=== PATIENT | female | born 1965 | race Caucasian/White ===

== ENCOUNTER 2017-03-25 13:33 | Outpatient (CLI) | payer BC ==
[~2017-03-25] VITALS: Ht 162.6 cm; Wt 108.2 kg
[~2017-03-25 13:33] MED LIST: MV,C200T3 PO; NAPR220C11 PO
[2017-03-25] MEDS ORDERED: MEDR2.5T6 PO (13:44)
[2017-03-25] MEDS ORDERED: ESTR1TAB24 PO (13:44)
[2017-03-25] MEDS ORDERED: MELA3TAB54 PO (13:44)
[2017-03-25] MEDS ORDERED: IBUP-1779 PO (13:44)
[2017-03-25 13:48] VITALS: BP 116/74
[2017-03-25 14:19] LABS: BASOPHILS % (AUTO) 0 % (0-10); EOSINOPHILS # (AUTO) 0.1 10^3/uL (0.0-0.3); EOSINOPHILS % (AUTO) 2 % (0-10); LYMPHOCYTES # (AUTO) 1.8 X 10^3 (1.0-4.0); LYMPHOCYTES % (AUTO) 26 % (12-44); MEAN CORPUSCULAR HEMOGLOBIN 27 PG (25-34); MEAN CORPUSCULAR HGB CONC 33 G/DL (32-36); MEAN CORPUSCULAR VOLUME 83 FL (80-99); MEAN PLATELET VOLUME 10.9 FL (7.4-10.4); MONOCYTES # (AUTO) 0.6 X 10^3 (0.0-1.0); MONOCYTES % (AUTO) 8 % (0-12); NEUTROPHILS # (AUTO) 4.4 X 10^3 (1.8-7.8); NEUTROPHILS % (AUTO) 64 % (42-75); PLATELET COUNT 212 10^3/uL (130-400); RED BLOOD COUNT 4.76 10^6/uL (4.35-5.85); RED CELL DISTRIBUTION WIDTH 14.9 % (10.0-14.5); WHITE BLOOD COUNT 6.9 10^3/uL (4.3-11.0)
== END 2017-03-25 14:40 | disposition home or self-care (01) ==
LOC: PREOP 13:33
PROVIDERS: ATTEND Obstetrics & Gynecology
DX: Z01.812 Encounter for preprocedural laboratory examination (principal); Z11.2 Encounter for screening for other bacterial diseases; N81.2 Incomplete uterovaginal prolapse; N39.3 Stress incontinence (female) (male); D64.9 Anemia, unspecified
CPT/HCPCS: 36415; 85025; 86850; 86900; 86901; 87081

== ENCOUNTER 2017-04-01 11:00 | Day surgery (SDC) | payer BC ==
[~2017-04-01] VITALS: Ht 162.6 cm; Wt 108.2 kg
[~2017-04-01 11:00] MED LIST changes: +ESTR1TAB24 PO; +IBUP-1779 PO; +MEDR2.5T6 PO; +MELA3TAB54 PO
[2017-04-01] MEDS ORDERED: ceFAZolin 1 GM/NS 50 ML IVPB IV ONE ×2 (11:15)
[2017-04-01 11:43] VITALS: BP 144/84
[2017-04-01] MEDS ORDERED: FAMOTIDINE 20MG/2ML IV (PEPCID) IV ONE (12:15)
[2017-04-01] MEDS: LACTATED RINGERS 1,000 ML IV PRN ×2 (12:25→15:00)
[2017-04-01] MEDS ORDERED: ESTRADIOL VAGINAL CREAM 42.5 GM (ESTRACE) VG ONE (13:16)
[2017-04-01] MEDS ORDERED: BUP/EPI 0.25% 1:200,000 (MARCAINE) 10 ML VIAL IJ ONE (13:16)
[2017-04-01] MEDS ORDERED: proPOfol 200 MG/20 ML (DIPRIVAN) VIAL IV ONE (13:30)
[2017-04-01] MEDS ORDERED: DEXAMETHASONE PF 10 MG/ML (DECADRON) VIAL ONE (13:30)
[2017-04-01] MEDS ORDERED: LIDOCAINE PF 2% 5 ML (XYLOCAINE) VIAL ONE (13:30)
[2017-04-01] MEDS ORDERED: ROCURONIUM 50 MG/5 ML (ZEMURON) VIAL IV ONE (13:30)
[2017-04-01] MEDS ORDERED: ONDANSETRON 4 MG/2 ML (SDV) Z0FRAN ONE (13:30)
[2017-04-01] MEDS ORDERED: fentaNYL INJECTION 100 MCG/2 ML AMP ONE ×2 (13:31→15:54)
[2017-04-01] MEDS ORDERED: MIDAZOLAM 2 MG/2 ML (VERSED) VIAL ONE (13:31)
--- NOTE | 2017-04-01 13:58 | Progress Note-Pre Operative ---
Pre-Operative Progress Note H&P Reviewed The H&P was reviewed, patient examined and no changes noted. Date Seen by Provider: Apr 01, 2017 Time Seen by Provider: 13:57 Date H&P Reviewed: Apr 01, 2017 Time H&P Reviewed: 13:58 Pre-Operative Diagnosis: uterovaginal prolapse and stress urinary incontinence ZOYA HARDIN MD Apr 01, 2017 1:58 pm
[2017-04-01] MEDS ORDERED: D5 LR IV SOLUTION 1,000 ML IV SCH (13:59)
--- NOTE | 2017-04-01 13:59 | Progress Note-Post Operative ---
Post-Operative Progess Note Surgeon (s)/Scientific Database Curator (s) Surgeon ZOYA HARDIN MD Scientific Database Curator: Cinthya Wynne RN Pre-Operative Diagnosis uterovaginal prolapse and stress urinary incontinence Post-Operative Diagnosis same Procedure & Operative Findings Date of Procedure 04/01/17 Procedure Performed/Findings total laparoscopic hysterectomy with bilateral salpingo-oophorectomy anterior colporrhaphy posterior colporrhaphy with enterocele repair Will performed a pubovaginal sling and cystoscopy Anesthesia Type Gen. Estimated Blood Loss Estimated blood loss (mL): 200 cc Specimens/Packing Specimens Removed uterus tubes and ovaries Packing: Kerlix in the vagina ZOYA HARDIN MD Apr 01, 2017 13:59
[2017-04-01] MEDS ORDERED: BENZOCAINE/MENTHOL (DERMOPLAST) 56 ML CAN TP PRN (14:00)
[2017-04-01] MEDS ORDERED: PROMETHAZINE INJ 25 MG/ML (PHENERGAN) AMP IM PRN (14:00)
[2017-04-01] MEDS ORDERED: WATER (STERILE) FOR INJ 10 ML BTL INJ ONE (14:00)
[2017-04-01] MEDS ORDERED: ESTROGENS CONJ IV 25 MG/5 ML (PREMARIN) VIAL IVP ONE (14:00)
[2017-04-01] MEDS ORDERED: ONDANSETRON 4 MG/2 ML (SDV) Z0FRAN IVP PRN ×2 (14:00→16:30)
[2017-04-01] MEDS ORDERED: MEPERIDINE (DEMEROL) INJ 100 MG/ML IM PRN (14:00)
[2017-04-01] MEDS ORDERED: oxyCODONE/APAP 10/325MG (PERCOCET 10) TABLET PO PRN (14:00)
[2017-04-01] MEDS ORDERED: SEVOFLURANE (ULTANE) 15 ML INHAL SOLN ONE ×9 (14:24→16:14)
[2017-04-01] MEDS ORDERED: LACTATED RINGERS 1,000 ML IV ONE ×2 (14:24→15:55)
--- NOTE | 2017-04-01 15:47 | Progress Note-Post Operative ---
Post-Operative Progess Note Surgeon (s)/Farm Equipment Maintenance Supervisor (s) Surgeon HUNG GAONA MD Farm Equipment Maintenance Supervisor: Cinthya Wynne RN Pre-Operative Diagnosis uterovaginal prolapse and stress urinary incontinence, OAB, ISD Post-Operative Diagnosis same Procedure & Operative Findings Date of Procedure 04/01/17 Procedure Performed/Findings PVS AND CYSTOSCOPY FINDINGS PER ABOVE Anesthesia Type GENERAL Estimated Blood Loss Estimated blood loss (mL): NEGLIGIBLE Specimens/Packing Specimens Removed N/A Packing: Kerlix in the vagina HUNG GAONA MD Apr 01, 2017 3:47 pm
[2017-04-01] MEDS ORDERED: morphine INJ 10 MG/ML 1ML (SYR OR VIAL) ONE (15:48)
[2017-04-01] MEDS ORDERED: GLYCOPYRROLATE 0.2 MG/ML (ROBINUL) 2 ML VIAL ONE (15:55)
[2017-04-01] MEDS ORDERED: NEOSTIGMINE (BLOXIVERZ ) 1 MG/1ML 10 ML VIAL ONE (15:55)
[2017-04-01] MEDS ORDERED: KETOROLAC 30 MG/ML VIAL IVP ONE (16:30)
[2017-04-01] MEDS ORDERED: morphine INJ 10 MG/ML 1ML (SYR OR VIAL) IVP PRN (16:30)
[2017-04-01] MEDS ORDERED: HYDROmorphone (DILAUDID) 2 MG/ML VIAL IVP PRN (16:30)
[2017-04-01 17:20] VITALS: BP 119/68
[2017-04-01 17:35] VITALS: BP 122/68
[2017-04-01 17:50] VITALS: BP 115/62
[2017-04-01 18:05] VITALS: BP 120/54
[2017-04-01 20:00] VITALS: BP 118/74
[2017-04-01] MEDS: KETOROLAC 30 MG/ML VIAL IVP SCH (22:04)
[2017-04-02 00:34] VITALS: BP 128/73
--- NOTE | 2017-04-02 03:04 | OPERATIVE REPORT ---
DATE OF SERVICE: 04/01/2017 PREOPERATIVE DIAGNOSES: Uterovaginal prolapse and stress urinary incontinence. POSTOPERATIVE DIAGNOSES: Uterovaginal prolapse and stress urinary incontinence. OPERATIVE PROCEDURE: Total laparoscopic hysterectomy with bilateral salpingo-oophorectomy as well as anterior and posterior colporrhaphy with enterocele repair and then Dr. Berry will also performed a pubovaginal sling and cystoscopy. OPERATIVE DESCRIPTION: With the patient in the supine position under satisfactory general anesthesia, she was repositioned to dorsal lithotomy position in the [facility] and prepped and draped in the usual fashion for abdominal and vaginal surgery. A weighted speculum was placed in the posterior fornix of the vagina. The cervix was exposed and grasped anteriorly with single-tooth tenaculum. Uterus was sounded to 8.5 cm with the uterine sound. The cervix was then serially dilated with mala dilators to accommodate a DEBRA II manipulator which was placed using a 35 mm colpotomy ring, a 6 mm x 8 cm uterine probe and sutures of #1 Vicryl at 3 and 9 o'clock positions of the cervix to affix the cervix to the manipulator. Pardo catheter was placed in the urinary bladder. The patient was brought in low dorsal lithotomy position. The abdomen was exposed. A 12 mm incision was made proximally, 4 cm superior to the umbilicus, 8 mm incision was made, 9 cm lateral to the umbilicus. All the incision sites were infiltrated with 0.25% Marcaine with epinephrine prior to incision. A stab wound was made in the left upper quadrant allowing placement of Veress needle at Clements's point. Correct placement confirmed with a water drop test. The abdomen is insufflated then with 2.6 liters of carbon dioxide. The Veress needle was removed. The 12 mm Optiview laparoscopic port placed to the supraumbilical incision and the abdominal wall was transilluminated. An 8 mm port was placed laterally in the right and left lateral incision. The patient was placed in Trendelenburg allowing the bowel to split up out of the pelvis. The instrument manipulator was then placed and attached to the port. Using a vessel sealer on the right and a bipolar fenestrated grasper on the left, we tried to instrument manipulator. With the patient in Trendelenburg, the bowel had spilled completely above the pelvis exposing uterus and ovaries. The uterus was quite morbid in appearance consistent with adenomyosis. The ovaries were atretic-appearing. Both fallopian tubes showed evidence of remote tubal sterilization. There were some endometriosis implants on the lower uterine segment posteriorly. The appendix was identified. It was a normal vermiform appendix. Both ureters were seen in peristalse well down away from the IP ligaments. The right tube and ovary were grasped and elevated. The IP ligament was grasped, cauterized and divided with the vessel sealer that was continued stepwise across the IP ligament, across the broad ligaments, across the round ligament and onto the broad ligament down the side of uterus. The same procedure performed on left lateral for removal of both tubes and ovaries eventually with the uterus. The anterior lower uterine segment of the peritoneum was divided after we placed in the vessel sealer with monopolar shear. The bladder was carefully dissected down off the lower uterine segment exposing the vaginal wall over the colpotomy ring of the DEBRA II manipulator. Colpotomy incision made in 12 o'clock position and then the incision was continued circumferentially until the entire colpotomy ring was exposed, freeing the uterus, with tubes and ovaries still attached which was extracted through the vagina. Using a Cobra grasper on the left and a Serafin Cut needle parts delivery driver on the right, the vaginal cuff was closed with 2 V-Loc barbed sutures starting from the right angle and continuing just past the midpoint of the vaginal cuff and then from the left angle to the midpoint of the vaginal cuff. I was taking care to ensure inclusion of the uterine vessels with the closure. Both ureters were seen in peristalse before, during and after the closure and the ureters were well out of the way. The peritoneum was brought back down onto the vaginal cuff with the final suture from the left. The pelvis was now irrigated and examined for hemostasis which was complete. At this point, the procedure was terminated. The operative instruments were removed from the ports. The instrument manipulator was removed. The patient was brought out of Trendelenburg. The abdomen was evacuated, was insufflating gas in the process of removing the ports. There was no bleeding noted at the port sites. The skin incisions were stapled closed after first closing the fascia at the supraumbilical incision with figure-of-8 suture of 2-0 Vicryl. Attention was now turned to the anterior and posterior vaginal repairs. The patient was placed in Trendelenburg. A weighted speculum was placed in the posterior fornix at the time. The bladder catheter was removed. The anterior vaginal wall was grasped with 2 Padmaja clamps. The incision made in the midline of the vaginal wall and continued to approximately a centimeter and a half of urethral meatus and then cephalad almost to the vaginal cuff. The bladder was carefully dissected off the muscularis of the vagina back to the pubic rami bilaterally. Endopelvic fascia and bladder wall were plicated with 2-0 Vicryl sutures elevating the bladder and lengthening the urethra. Dr. Berry was on hand to assist with the anterior repair and the dissection to this point. He did assume care of the patient for pubovaginal sling and the cystoscopy. Upon completion of his portions of this surgery, then I resumed care of the patient. Resected the redundant anterior vaginal wall muscularis mucosa and then closed the vaginal wall with the running locked suture of 2-0 Vicryl. Good support was evident and hemostasis was complete. Posterior repair was now affected by placing Padmaja clamps on the perineum and the hymenal ring at 5 and 7 o'clock position and inverted triangle of skin was removed from the perineal body and then upright triangle from the posterior vaginal floor. The rectovaginal space was entered sharply and dissected bluntly to the apex of the vagina where it was explored for an enterocele which was discovered. The enterocele was reduced and plicated with 2-0 Vicryl pursestring sutures and then the rectovaginal space was obliterated with additional sutures of 2-0 Vicryl pop off and then the perineal body was restored with additional sutures of 2-0 Vicryl. Redundant posterior vaginal wall muscularis mucosa was then removed sharply. The vaginal wall was closed with a running locked suture of 2-0 Vicryl. Hemostasis was complete and support was back to a normal anatomic condition. This closure was continued past the hymenal ring down onto the perineal body and then back up subcu to the hymenal ring where the suture was tied. Digital rectal exam confirmed no stricture or stenosis of the rectum and no sutures into or through the rectal mucosa. The sponge and needle counts correct. Estimated blood loss around 200 mL. The procedure was complete and terminated. The patient was uneventfully awakened from her general anesthesia and transferred to recovery room in stable condition. Job ID: [id number] DocumentID: [id number] Dictated Date: 04/01/2017 16:17:14 Grinder Set Up Operator Thread Date: 04/02/2017 02:37:28 Dictated By: ZOYA HARDIN MD
[2017-04-02 04:00] VITALS: BP 111/68
[2017-04-02] MEDS: KETOROLAC 30 MG/ML VIAL IVP SCH ×2 (04:08→07:59)
--- NOTE | 2017-04-02 05:02 | OPERATIVE REPORT ---
DATE OF SERVICE: 04/01/2017 PREOPERATIVE DIAGNOSIS: On my part, mixed urinary incontinence with overactive bladder and intrinsic sphincter deficiency. POSTOPERATIVE DIAGNOSIS: Mixed urinary incontinence with overactive bladder and intrinsic sphincter deficiency. OPERATION PERFORMED: Pubovaginal sling and cystoscopy. SURGEON: Hung Gaona MD VISUAL BASIC PROGRAMMER: Raymond Robert MD COMPLICATIONS: None. PROCEDURE: After Dr. Robert performed his first part of a surgery that he would dictate, I inserted a Pardo catheter draining clear urine. I passed the pubovaginal sling 0037 device using the described technique on both sides and the sling was sitting nicely under the mid urethra with no tension, no twist, and passage of a curved hemostat easily between it and the underlying tissue. I removed the Pardo catheter, performed cystoscopy to confirm the integrity of the bladder, urethral orifices, and urethra. There was no foreign body and presence of the sling under the mid urethra. I left the bladder half full, removed the cystoscope performing the manual Valsalva maneuver which was negative. I reinserted the Pardo catheter draining clear urine. Estimated blood loss from my part negligible and Dr. Robert proceeded with the rest of surgery that he will dictate. Job ID: [id number] DocumentID: [id number] Dictated Date: 04/01/2017 15:49:26 Pharmacy Delivery Driver Date: 04/01/2017 23:55:54 Dictated By: HUNG GAONA MD
[2017-04-02 07:50] VITALS: BP 143/76
[2017-04-02] MEDS ORDERED: OXYC-465 PO (07:52)
[2017-04-02] MEDS ORDERED: DOCU100C37 PO (07:52)
[2017-04-02] MEDS ORDERED: IBUP-1780 PO (07:52)
--- NOTE | 2017-04-02 07:55 | Discharge Instructions ---
Discharge Instructions Discharge Medications New, Converted or Re-Newed RX: RX on Chart Patient Instructions Patient Instructions: as instructed Return to The Hospital For: as directed Activity & Diet Discharge Diet: No Restrictions Activity as Tolerated: No Orders-Post D/C & Referrals Follow Up Appt: return to clinic on Tuesday, April 06, 2017 at 930 a.m. for staple removal Call to make follow up appt. for patient in 4 weeks. follow-up with Dr. Woodard per his instructions Activity: Rest for 24 hours, than as tolerated. Wound Care: May remove Band-Aid tomorrow. Replace as desired. Keep incisions clean and dry. Wash daily with soap and water. Diet: As tolerated-Clear Liquids only if nauseated. Tomorrow, may shower or tub bathe as desired. No driving for 24 hours, no alcoholic beverages for 24 hours, and nothing per vagina (no tampons, douching, or intercourse) for 8 weeks. Patient to return to the clinic as soon as possible for: Temperature greater than 101F, Severe Pain, Foul discharge from incision or vagina, Excessive Bleeding (more than a period). ZOYA HARDIN MD Apr 02, 2017 7:55 am
--- NOTE | 2017-04-02 07:57 | Progress Note-Standard ---
Standard Progress Note Progress Notes/Assess & Plan Date Seen by Provider: Apr 02, 2017 Time Seen by Provider: 07:55 Progress/Assessment & Plan this patient is without complaint. She is ambulatory, tolerating by mouth well , has good pain control, denies chest pain, denies shortness of breath, denies nausea vomiting, denies headache. Patient has not voided yet. Vital Signs Date Time Temp Pulse Resp B/P (MAP) Pulse Ox O2 Delivery O2 Flow Rate FiO2 04/02/17 04:00 96.6 78 18 111/68 94 Room Air 04/02/17 00:34 96.7 72 17 128/73 97 Room Air 04/01/17 20:00 97.7 91 17 118/74 96 Room Air 04/01/17 19:33 Room Air 04/01/17 18:05 97.9 80 18 120/54 97 Room Air 04/01/17 17:50 98.0 78 18 115/62 97 Room Air 04/01/17 17:35 98.0 84 18 122/68 98 Room Air 04/01/17 17:20 97.1 78 16 119/68 98 Room Air 04/01/17 11:43 98.7 91 18 144/84 95 Room Air I & O 04/02/17 07:00 Intake Total 2250 ml Output Total 2150 ml Balance 100 ml vital signs are stable. Patient is afebrile. The abdomen is benign. Bowel sounds are present in all 4 quadrants. Extremities show no clubbing or cyanosis. There is no Homans sign. Assessment and plan postoperative day number 1 doing well. Plan is for discharge home providing patient bladder function is satisfactory. Patient will be followed up in clinic. Final Diagnosis uterovaginal prolapse and stress urinary incontinence ZOYA HARDIN MD Apr 02, 2017 7:56 am
[2017-04-02] MEDS: ESTRADIOL 1 MG TAB (ESTRACE) PO SCH (08:11)
[2017-04-02] MEDS: DOCUSATE SODIUM 100 MG (COLACE) CAP PO SCH ×2 (08:11→22:08)
--- NOTE | 2017-04-02 09:58 | Progress Note-Urology ---
Progress Note-Urology Progress Notes/Assess & Plan Progress/Assessment & Plan doing and feeling well, akins out, has not voided well, NO leakage, continue observe Final Diagnosis incontinence, OAB, ISD HUNG GAONA MD Apr 02, 2017 9:58 am
[2017-04-02] MEDS ORDERED: IBUPROFEN 800 MG (MOTRIN) TAB PO ONE (10:32)
[2017-04-02] MEDS: IBUPROFEN 800 MG (MOTRIN) TAB PO SCH ×3 (10:38→22:08)
[2017-04-02 12:30] VITALS: BP 146/88
--- NOTE | 2017-04-02 14:23 | Anesthesia-General Post-Op ---
General Patient Condition Mental Status/LOC: Same as Preop Cardiovascular: Satisfactory Nausea/Vomiting: Absent Respiratory: Satisfactory Pain: Controlled Complications: Absent Post Op Complications Complications None Follow Up Care/Instructions Patient Instructions None needed. Anesthesia/Patient Condition Patient Condition Patient is doing well, no complaints, stable vital signs, no apparent adverse anesthesia problems. No complications reported per nursing. EAMON JESUS CRNA Apr 02, 2017 14:23
[2017-04-02 20:00] VITALS: BP 126/66
[2017-04-03 02:00] VITALS: BP 136/92
[2017-04-03] MEDS ORDERED: LIDOCAINE UROJET 2% GEL 10 ML PKG TOP ONE (03:45)
[2017-04-03] MEDS: IBUPROFEN 800 MG (MOTRIN) TAB PO SCH ×2 (04:18→09:42)
--- NOTE | 2017-04-03 07:54 | Progress Note-Standard ---
Standard Progress Note Progress Notes/Assess & Plan Date Seen by Provider: Apr 03, 2017 Time Seen by Provider: 07:53 Progress/Assessment & Plan this patient is without complaint. She is ambulatory, tolerating by mouth well , has good pain control, denies chest pain, denies shortness of breath, denies nausea vomiting, denies headache. Patient has not voided yet. Vital Signs Date Time Temp Pulse Resp B/P (MAP) Pulse Ox O2 Delivery O2 Flow Rate FiO2 04/02/17 04:00 96.6 78 18 111/68 94 Room Air 04/02/17 00:34 96.7 72 17 128/73 97 Room Air 04/01/17 20:00 97.7 91 17 118/74 96 Room Air 04/01/17 19:33 Room Air 04/01/17 18:05 97.9 80 18 120/54 97 Room Air 04/01/17 17:50 98.0 78 18 115/62 97 Room Air 04/01/17 17:35 98.0 84 18 122/68 98 Room Air 04/01/17 17:20 97.1 78 16 119/68 98 Room Air 04/01/17 11:43 98.7 91 18 144/84 95 Room Air I & O 04/02/17 07:00 Intake Total 2250 ml Output Total 2150 ml Balance 100 ml vital signs are stable. Patient is afebrile. The abdomen is benign. Bowel sounds are present in all 4 quadrants. Extremities show no clubbing or cyanosis. There is no Homans sign. Assessment and plan postoperative day number 1 doing well. Plan is for discharge home providing patient bladder function is satisfactory. Patient will be followed up in clinic. April 03, 2017 Patient is without complaint. She is ablating, tolerating by mouth, has good pain control, she has not voided as of yet. She has had both were residuals of almost thousand cc. Vance is managing her bladder. Vital signs are stable patient is afebrile Vital Signs Date Time Temp Pulse Resp B/P (MAP) Pulse Ox O2 Delivery O2 Flow Rate FiO2 04/03/17 02:00 98.2 89 18 136/92 96 Room Air 04/02/17 20:00 99.0 91 18 126/66 97 Room Air 04/02/17 12:30 98.8 68 16 146/88 97 Room Air I & O 04/03/17 07:00 Intake Total 1350 ml Output Total 3075 ml Balance -1725 ml abdomen is benign. Extreme show no clubbing cyanosis. There is no Homans sign. Assessment and plan operative day number 2 doing well except for her urinary retention which Dr. Woodard is managing. Likely plan is for discharge home with follow-up in clinic. Final Diagnosis uterovaginal prolapse and stress urinary incontinence ZOYA HARDIN MD Apr 03, 2017 7:54 am
[2017-04-03 08:00] VITALS: BP 126/88
[2017-04-03] MEDS: ESTRADIOL 1 MG TAB (ESTRACE) PO SCH (09:42)
[2017-04-03] MEDS: DOCUSATE SODIUM 100 MG (COLACE) CAP PO SCH (09:42)
[2017-04-04] MEDS ORDERED: ATRACURIUM 50 MG/5 ML (TRACRIUM) IV ONE (08:22)
== END 2017-04-03 13:45 | disposition home or self-care (01) ==
LOC: SDC 11:00 → LDRP 17:20 → SDC 04-03 13:45
PROVIDERS: ATTEND Obstetrics & Gynecology
DX: N81.2 Incomplete uterovaginal prolapse (principal); N80.0 Endometriosis of uterus; N36.42 Intrinsic sphincter deficiency (ISD); N39.3 Stress incontinence (female) (male); N32.81 Overactive bladder; R33.9 Retention of urine, unspecified
CPT/HCPCS: 94664; 96375; 96376

== ENCOUNTER 2017-04-07 02:58 | Emergency (ER) | payer BC ==
[~2017-04-07] VITALS: Ht 162.6 cm; Wt 105.2 kg
[~2017-04-07 02:58] MED LIST changes: +DOCU100C37 PO; +IBUP-1780 PO; +OXYC-465 PO
--- NOTE | 2017-04-07 03:13 | ED GU-Female ---
General Chief Complaint: -Female Stated Complaint: POST OP CATH REMOVAL,CAN'T URINATE Source: patient, family, RN notes reviewed Exam Limitations: no limitations History of Present Illness Time seen by provider: 03:11 Initial Comments Patient presents along c/ her significant other c/ c/o bladder pain/pressure and inability to urinate since earlier tonight. Patient had surgery by both Dr. Robert and Dr. Berry, last week and patient had her post op swanson removed by Dr. Berry's RN in his office on 04/06. Was able to urinate p/ removal and allowed to go home. Awoke earlier tonight c/ urge to urinate but not able to. Pain/pressure has steadily increased since leading to her presentation here for relief. Denies any fever, or N/V. Timing/Duration: just prior to arrival, this evening, constant, getting worse Severity/Quality: moderate, other (pressure) Location: suprapubic Radiation: none Activities at Onset: sleep Prior Genitourinary Problems: recent trauma (surgery) Modifying Factors: Improves With Other (position worsens her discomfort) Associated Symptoms: abdominal pain Allergies and Home Medications Allergies Uncoded Allergies: steri strips (Allergy, Intermediate, rash, 04/01/17) Home Medications Cephalexin 500 Mg Capsule, 500 MG PO TID for 7 Days, #21 Ref 0 Prescribed by: MERE DAVIS on 04/07/17 0450 Docusate Sodium 100 Mg Capsule, 100 MG PO BID, #60 Prescribed by: ZOYA ULLOA on 04/02/17 0752 Estradiol 1 Mg Tablet, PO DAILY, (Reported) Ibuprofen 800 Mg Tablet, 800 MG PO Q6HR, #60 Prescribed by: ZOYA ULLOA on 04/02/17 0752 Melatonin 3 Mg Tablet, 3 MG PO HS, (Reported) Oxycodone HCl/Acetaminophen 1 Each Tablet, 1-2 TAB PO Q6H PRN for PAIN-MILD TO MODERATE, #60 Prescribed by: ZOYA ULLOA on 04/02/17 0752 Constitutional: see HPI Gastrointestinal: see HPI, abdominal pain (suprapubic) Genitourinary: see HPI, pain, other (inability to urinate) : No All Other Systemes Reviewed Negative Unless Noted: Yes (Negative excepted noted.) Past [id number]-Tbutpo Hx Patient Social History Type Used: Cigarettes Recent Foreign Travel: No Contact w/Someone Who Travel: No Recent Hopitalizations: No Immunizations Up To Date Date of Pneumonia Vaccine: Oct 24, 2010 Seasonal Allergies Seasonal Allergies: Yes (MILD) Surgeries HX Surgeries: Yes (hand surgery status post degloving injury X 12) Surgeries: Gallbladder, Tubal Ligation Respiratory Hx Respiratory Disorders: No Cardiovascular Hx Cardiac Disorders: No Neurological Hx Neurological Disorders: No Reproductive System Hx 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) Sexually Transmitted Disease: No HIV/AIDS: No Female Reproductive Disorders: Denies LUMBER STRAIGHTENED History: Tubal Ligation, Menopausal Genitourinary Hx Genitourinary Disorders: Yes (JOLLY) Gastrointestinal Hx Gastrointestinal Disorders: No Musculoskeletal Hx Musculoskeletal Disorders: Yes Musculoskeletal Disorders: Arthritis, Chronic Back Pain Endocrine Hx Endocrine Disorders: No HEENT HX ENT Disorders: Yes (READING GLASSES, DENTURES) Loss of Vision: Bilateral Hearing Impairment: Denies Cancer Hx Cancer: No Psychosocial Hx Psychiatric Problems: No Integumentary HX Skin/Integumentary Disorder: No Blood Transfusions Hx Blood Disorders: No Adverse Reaction to a Blood Tr: No (N/A) Physical Exam Vital Signs Vital Sign - Last 12Hours 04/07/17 03:06 Temp 97.5 Pulse 87 B/P (MAP) 142/86 Pulse Ox 97 O2 Delivery Room Air Capillary Refill : General Appearance: WD/WN, mild distress, obese Cardiovascular: regular rate, rhythm Respiratory: no respiratory distress Rectal: deferred Neurologic/Psychiatric: no motor/sensory deficits, alert, oriented x 3 Skin: warm/dry Progress/Results/Core Measures Results/Orders Lab Results Laboratory Tests Test 04/07/17 04:15 Range/Units Urine Color YELLOW Urine Clarity SLIGHTLY CLOUDY Urine pH 5 5-9 Urine Specific [place] 1.015 L 1.016-1.022 Urine Protein 1+ H NEGATIVE Urine Glucose (UA) NEGATIVE NEGATIVE Urine Ketones NEGATIVE NEGATIVE Urine Nitrite POSITIVE H NEGATIVE Urine Bilirubin NEGATIVE NEGATIVE Urine Urobilinogen NORMAL NORMAL MG/DL Urine Leukocyte Esterase 3+ H NEGATIVE Urine RBC (Auto) 5+ H NEGATIVE Urine RBC 10-25 H /HPF Urine WBC 25-50 H /HPF Urine Squamous Epithelial Cells 0-2 /HPF Urine Crystals NONE /LPF Urine Bacteria LARGE H /HPF Urine Casts NONE /LPF Urine Mucus NEGATIVE /LPF Urine Culture Indicated YES My Orders Orders - MERE DAVIS DO Bladder Scan (04/07/17 03:33) Ua Culture If Indicated (04/07/17 04:00) Alfuzosin Tablet (Uroxatral Tablet) (04/07/17 04:05) Urine Culture (04/07/17 04:15) Cephalexin Capsule (Keflex Capsule) (04/07/17 04:45) Medications Given in ED Current Medications Medications Dose Ordered Sig/Crystal Route Start Time Stop Time Status Last Admin Dose Admin Cephalexin HCl 500 mg ONCE ONCE PO 04/07/17 04:45 04/07/17 04:46 DC 04/07/17 05:09 500 MG Vital Signs/I&O Vital Sign - Last 12Hours 04/07/17 03:06 Temp 97.5 Pulse 87 B/P (MAP) 142/86 Pulse Ox 97 O2 Delivery Room Air Progress Note : Progress Note Despite the bladder scanner only detecting 43 ml of urine went ahead and had the RN cath the patient and we got back > 450 ml of urine almost immediately providing great relief for the patient. Decided to go ahead and leave the catheter in @ this time. Departure Impression Impression: Primary Impression: Urinary tract infection Additional Impression: Acute urinary retention Disposition: 01 HOME, SELF-CARE Condition: Improved Departure-Patient Inst. Decision time for Depature: 04:45 Referrals: NO,LOCAL PHYSICIAN (PCP) Primary Care Physician Patient Instructions: Urinary Retention (DC), Urinary Tract Infection, Adult ( DC) Add. Discharge Instructions: All discharge instructions reviewed with patient and/or family. Voiced understanding. NEED TO HAVE THE SWANSON REMOVED IN NEXT 48-72 HOURS. Scripts Cephalexin (Keflex) 500 Mg Capsule 500 MG PO TID for UTI for 7 Days, #21 CAP 0 Refills Prov: MERE DAVIS DO 04/07/17 MERE DAVIS DO Apr 07, 2017 03:13
[2017-04-07] MEDS ORDERED: ALFUZOSIN HCL 10 MG TAB (UROXATRAL) PO STA (04:05)
[2017-04-07 04:22] LABS: BILIRUBIN,URINE NEGATIVE (NEGATIVE); KETONES,URINE NEGATIVE (NEGATIVE); LEUKOCYTE ESTERASE ,URINE 3+ (NEGATIVE); NITRITE,URINE POSITIVE (NEGATIVE); PH,URINE 5 (5-9); PROTEIN,URINE 1+ (NEGATIVE); UROBILINOGEN,URINE NORMAL (NORMAL)
[2017-04-07 04:29] LABS: SQUAMOUS EPITHELIAL CELL,UR 0-2 /HPF; WBC,URINE 25-50 /HPF
[2017-04-07] MEDS ORDERED: CEPHALEXIN 250 MG (KEFLEX) CAP PO ONE (04:45)
[2017-04-07] MEDS ORDERED: CEPH-507 PO (04:50)
[2017-04-07 05:22] VITALS: BP 146/86
--- OUTSIDE RECORDS SUMMARY | 2017-04-12 18:03 | XMS REPORT | Continuity of Care Document ---
Author Author [facility] Organization [facility] Address Unknown Phone Unavailable Allergies Active Description Code Type Severity Reaction Onset Reported/Identified Relationship to Patient Clinical Status Yes No Known Drug Allergies [id number] Drug Allergy Unknown N/ A 03/25/2017 Yes steri strips steri strips Moderate rash 04/01/2017 Medications Problems Date Dx Coded Attending Type Code Diagnosis Diagnosed By 05/21/2008 786.52 PAINFUL RESPIRATION 05/21/2008 786.52 PAINFUL RESPIRATION 05/21/2008 SAVANNAH UNDERWOOD APRN 786.52 PAINFUL RESPIRATION 05/21/2008 MERE ALVAREZ APRN 786.52 PAINFUL RESPIRATION 05/21/2008 MERE ALVAREZ APRN 786.52 PAINFUL RESPIRATION 05/21/2008 JOSE MIGUEL SINGH DO 786.52 PAINFUL RESPIRATION 05/31/2008 786.50 CHEST PAIN 05/31/2008 786.50 CHEST PAIN 05/31/2008 SAVANNAH UNDERWOOD APRN 786.50 CHEST PAIN 05/31/2008 MERE ALVAREZ APRN 786.50 CHEST PAIN 05/31/2008 MERE ALVAREZ APRN 786.50 CHEST PAIN 05/31/2008 JOSE MIGUEL SINGH DO K 786.50 CHEST PAIN 08/20/2013 FRANCES MUNOZ MD Ot 240.9 GOITER NOS 08/20/2013 FRANCES MUNOZ MD Ot 726.10 BURSAE TENDONS DIS SHLDER NOS 08/20/2013 FRANCES MUNOZ MD, Ot 786.50 CHEST PAIN NOS 10/08/2013 MERE ALVAREZ APRN 226 BENIGN NEOPLASM OF THYROID GLANDS 10/08/2013 JOSE MIGUEL SINGH DO 226 BENIGN NEOPLASM OF THYROID GLANDS 03/25/2017 MERE ALVAREZ Ot 241.0 NONTOX UNINODULAR GOITER 03/25/2017 MERE ALVAREZ Ot 226 BENIGN NEOPLASM THYROID 03/25/2017 MERE ALVAREZ Ot 241.0 NONTOX UNINODULAR GOITER 03/25/2017 MERE ALVAREZ Ot 226 BENIGN NEOPLASM THYROID 03/25/2017 MERE ALVAREZ Ot 241.0 NONTOX UNINODULAR GOITER 03/25/2017 MERE ALVAREZ Ot 226 BENIGN NEOPLASM THYROID 03/25/2017 ZOYA HARDIN MD, Ot D64.9 ANEMIA, UNSPECIFIED 03/25/2017 ZOYA HARDIN MD, Ot N39.3 STRESS INCONTINENCE (FEMALE) (MALE) 03/25/2017 ZOYA HARDIN MD, Ot N81.2 INCOMPLETE UTEROVAGINAL PROLAPSE 03/25/2017 ZOYA HARDIN MD, Ot Z01.812 ENCOUNTER FOR PREPROCEDURAL LABORATORY E 03/25/2017 ZOYA HARDIN MD, Ot Z11.2 ENCOUNTER FOR SCREENING FOR OTHER BACTER 04/06/2017 ZOYA HARDIN MD, Ot N32.81 OVERACTIVE BLADDER 04/06/2017 ZOYA HARDIN MD, Ot N36.42 INTRINSIC SPHINCTER DEFICIENCY (ISD ) 04/06/2017 ZOYA HARDIN MD, Ot N39.3 STRESS INCONTINENCE (FEMALE) (MALE) 04/06/2017 ZOYA HARDIN MD, Ot N80.0 ENDOMETRIOSIS OF UTERUS 04/06/2017 ZOYA HARDIN MD, Ot N81.2 INCOMPLETE UTEROVAGINAL PROLAPSE 04/06/2017 ZOYA HARDIN MD, Ot R33.9 RETENTION OF URINE, UNSPECIFIED Procedures Code Description [place] [address] US THYROID ULTRASOUND 09/04/2013 50933 ROUTINE VENIPUNCTURE 10/08/2013 11503 US GUIDE FOR BIOPSY 10/08/2013 68481 TSH 10/08/2013 86766 ROUTINE VENIPUNCTURE 06/21/2014 06117 HEMOGLOBIN (IN-HOUSE) 06/21/2014 87222 GLUCOSE FINGER STICK 06/21/2014 88878 LIPID PANEL 06/21 Results Test Result Range Complete blood count (CBC) with automated white blood cell (WBC) differential - 03/25/17 14:00 Blood leukocytes automated count (number/volume) 6.9 10*3/ uL 4.3-11.0 Blood erythrocytes automated count (number/volume) 4.76 10*6 /uL 4.35-5.85 Venous blood hemoglobin measurement (mass/volume) 13.0 g/dL 11.5-16.0 Blood hematocrit (volume fraction) 39 % 35-52 Automated erythrocyte mean corpuscular volume 83 [foz_us] 80-99 Automated erythrocyte mean corpuscular hemoglobin (mass per erythrocyte) 27 pg 25-34 Automated erythrocyte mean corpuscular hemoglobin concentration measurement ( mass/volume) 33 g/dL 32-36 Automated erythrocyte distribution width ratio 14.9 % 10.0-14.5 Automated blood platelet count (count/volume) 212 10*3/uL 130-400 Automated blood platelet mean volume measurement 10.9 [foz_ us] 7.4-10.4 Automated blood neutrophils/100 leukocytes 64 % 42-75 Automated blood lymphocytes/100 leukocytes 26 % 12-44 Blood monocytes/100 leukocytes 8 % 0-12 Automated blood eosinophils/100 leukocytes 2 % 0-10 Automated blood basophils/100 leukocytes 0 % 0-10 Blood neutrophils automated count (number/volume) 4.4 10*3 1.8-7.8 Blood lymphocytes automated count (number/volume) 1.8 10*3 1.0-4.0 Blood monocytes automated count (number/volume) 0.6 10*3 0.0-1.0 Automated eosinophil count 0.1 10*3/uL 0.0-0.3 Automated blood basophil count (count/volume) 0.0 10*3/uL 0.0-0.1 Blood type T Indirect antibody screen panel - 03/25/17 14:00 ABO+Rh group OP NRG Blood group antibody screen NEGATIVE NRG Methicillin resistant Staphylococcus aureus (MRSA) screening culture - 14:00 Methicillin resistant Staphylococcus aureus (MRSA) screening culture NEG NRG Blood type T Indirect antibody screen panel - 04/01/17 11:25 ABO+Rh group OP NRG Transfusion band number [id number] NRG Blood group antibody screen NEGATIVE NRG Complete urinalysis with reflex to culture - 04/07/17 04:15 Urine color determination YELLOW NRG Urine clarity determination SLIGHTLY CLOUDY NRG Urine pH measurement by test strip 5 5- 9 Specific gravity of urine by test strip 1.015 1.016-1.022 Urine protein assay by test strip, semi-quantitative 1+ NEGATIVE Urine glucose detection by automated test strip NEGATIVE NEGATIVE Erythrocytes detection in urine sediment by light microscopy 5+ NEGATIVE Urine ketones detection by automated test strip NEGATIVE NEGATIVE Urine nitrite detection by test strip POSITIVE NEGATIVE Urine total bilirubin detection by test strip NEGATIVE NEGATIVE Urine urobilinogen measurement by automated test strip (mass/volume) NORMAL NORMAL Urine leukocyte esterase detection by dipstick 3+ NEGATIVE Automated urine sediment erythrocyte count by microscopy (number/high power field) [HPF] NRG Automated urine sediment leukocyte count by microscopy (number/high power field ) [HPF] NRG Bacteria detection in urine sediment by light microscopy LARGE NRG Squamous epithelial cells detection in urine sediment by light microscopy 0-2 NRG Crystals detection in urine sediment by light microscopy NONE NRG Casts detection in urine sediment by light microscopy NONE NRG Mucus detection in urine sediment by light microscopy NEGATIVE NRG Complete urinalysis with reflex to culture YES NRG Bacterial urine culture - 04/07/17 04:15 Bacterial urine culture [id number] NRG COLONY COUNT >100,000/ML NRG FTX;REPORTABLE SENSITIVITY REPORTED AT 0952, 17 NRG Bacterial susceptibility panel - 04/07/17 04:15 Gentamicin susceptibility test by minimum inhibitory concentration <= NRG Trimethoprim/sulfamethoxazole susceptibility test by minimum inhibitoryconcentration <= NRG Ampicillin susceptibility test by minimum inhibitory concentration <= NRG Tobramycin susceptibility test by minimum inhibitory concentration <= NRG Cefazolin susceptibility test by minimum inhibitory concentration <= NRG Ceftriaxone susceptibility test by minimum inhibitory concentration <= NRG Ampicillin/sulbactam susceptibility test by minimum inhibitory concentration <= NRG Piperacillin/tazobactam susceptibility test by minimum inhibitory concentration <= NRG Ciprofloxacin susceptibility test by minimum inhibitory concentration <= NRG Meropenem susceptibility test by minimum inhibitory concentration <= NRG Nitrofurantoin susceptibility test by minimum inhibitory concentration <= NRG Aztreonam susceptibility test by minimum inhibitory concentration <= NRG Extended spectrum beta lactamase (ESBL) producing bacteria susceptibility test by minimum inhibitory concentration - NRG Encounters ACCT No. Visit Date/Time Discharge Status Pt. Type Provider Facility Loc./Unit Complaint [id number] 04/07/2017 03:01:00 2016 05:21:00 DIS Emergency MERE DAVIS DO [facility] ER POST OP CATH REMOVAL,CAN'T URINATE [id number] 04/01/2017 11:00:00 2016 13:45:00 DIS Outpatient ZOYA HARDIN MD [facility] UTEROVAGINAL PROLAPSE, STRESS URINARY INCONTINENCE [id number] 03/25/2017 13:33:00 2016 14:40:00 DIS Outpatient ZOYA HARDIN MD [facility] PREOP UTEROVAGINAL PROLAPSE, STRESS URINARY INCONTINENCE [id number] 10/19/2013 12:36:00 2012 23:59:59 CLS Outpatient MERE ALVAREZ [facility] RAD RT THYROID MASS [id number] 09/10/2013 14:01:00 2012 23:59:59 CLS Outpatient MERE ALVAREZ [facility] RAD RE LT LOBAR ENLARGEMENT [id number] 08/20/2013 10:06:00 2012 17:20:00 DIS Emergency TAMMY GOLD, FRANCES Taylor [facility] ER PAIN LEFT ARMPIT [id number] 03/25/2017 13:32:00 Document Registration
== END 2017-04-07 05:21 | disposition home or self-care (01) ==
LOC: EDUNIT# 02:58 → ER 03:01
DX: N39.0 Urinary tract infection, site not specified (principal)
CPT/HCPCS: 51702; 81000; 87088; 87186

== ENCOUNTER → 2018-08-01 | Outpatient (CLI) | payer BC ==
[~2018-08-01] MED LIST changes: +CEPH-507 PO
--- NOTE | 2018-08-01 12:37 | Diagnostic Imaging Report ---
PROCEDURE: US left lower extremity venous. TECHNIQUE: Multiple real-time grayscale images were obtained over the left lower extremity in various projections. Additional duplex Doppler and color Doppler images were also obtained. INDICATION: Calf pain and swelling. FINDINGS: The left common femoral, superficial femoral, popliteal veins and tibial veins demonstrate normal response to compression, augmentation, and Valsalva. There are no abnormal left lower extremity fluid collections or masses. IMPRESSION: No evidence of deep venous thrombosis in the left lower extremity. Dictated by: Dictated on workstation # [id number]
== END ==
LOC: RAD 11:12
PROVIDERS: ATTEND Pediatrics
DX: M79.89 Other specified soft tissue disorders (principal)

== ENCOUNTER → 2019-01-30 | Outpatient (CLI) | payer BC ==
[~2019-01-30] MED LIST changes: +HOLD METFORMIN - RECEIVED CONTRAST 20 ML VIAL IV SCH; +IOHEXOL 350 MG/ML 100 ML (OMNIPAQUE 350) VIAL IV ONE
[2019-01-30 12:32] LABS: BUN/CREATININE RATIO 17; CREATININE SERUM 0.77 MG/DL (0.60-1.30); GFR ESTIMATED > 60
--- NOTE | 2019-01-30 14:29 | Diagnostic Imaging Report ---
PROCEDURE: CT abdomen and pelvis with contrast. TECHNIQUE: Multiple contiguous axial images were obtained through the abdomen and pelvis after administration of intravenous contrast. Auto Exposure Controls were utilized during the CT exam to meet ALARA standards for radiation dose reduction. INDICATION: Left lower quadrant pain. COMPARISON: There are no prior studies available for comparison. FINDINGS: There is diverticulosis of the sigmoid and descending colon. Furthermore, there is thickening of the wall of the sigmoid colon and distortion of the pericolic fat in this region. This does suggest edema/inflammation that is most likely related to acute diverticulitis. There is no diverticular mass or abscess visualized. There is no other pelvic mass or free fluid collection noted. The uterus is surgically absent. The urinary bladder is grossly unremarkable. The appendix was visualized and is not abnormally thickened. There is a fat-containing inguinal hernia on the left, but there is no sign of incarceration or obstruction of the bowel by the hernia. The liver is of lower density than usually seen. This does suggest fatty metamorphosis. The gallbladder is surgically absent. The spleen, pancreas, adrenals, aorta and inferior vena cava, and kidneys show no sign of an acute abnormality. The gallbladder is surgically absent. The stomach is not well distended and consequently difficult to assess. The lung bases are clear. The bone windows show no sign of a fracture or of a destructive lesion. There is no obvious breast mass. According to our records, the patient has not had a mammogram since 2011. If the patient has had a recent (within the last year) mammogram elsewhere, then no further imaging would be necessary. Otherwise, mammography would be recommended for further study. IMPRESSION: 1. The findings would be consistent with acute diverticulitis of the sigmoid colon. There is no diverticular mass or abscess identified. 2. There is no acute abnormality of the abdomen or pelvis noted otherwise. 3. There is no obvious breast mass. Recommendations as above. 4. These results were discussed with Karine Turcios APRN. Dictated by: Dictated on workstation # [id number]
== END ==
LOC: RAD 11:59
PROVIDERS: ATTEND Nurse Practitioner Family
DX: R10.32 Left lower quadrant pain (principal); Z90.49 Acquired absence of other specified parts of digestive tract; Z90.710 Acquired absence of both cervix and uterus
CPT/HCPCS: 36415; 74177; 82565; 84520

== ENCOUNTER 2019-06-17 21:20 | Emergency (ER) | payer BC ==
[~2019-06-17] VITALS: Ht 162.6 cm; Wt 105.4 kg
[~2019-06-17 21:20] MED LIST changes: -HOLD METFORMIN - RECEIVED CONTRAST 20 ML VIAL IV SCH; -IOHEXOL 350 MG/ML 100 ML (OMNIPAQUE 350) VIAL IV ONE
--- NOTE | 2019-06-17 21:56 | ED Abdominal Pain ---
General Chief Complaint: Abdominal/GI Problems Stated Complaint: FEVER/ DIVERTICULITIS Source of Information: Patient Exam Limitations: No Limitations History of Present Illness Date Seen by Provider: Jun 17, 2019 Time Seen by Provider: 21:55 Initial Comments To ER with c/o left lower abdominal pain x3 days. Diagnosed with diverticulitis 3 days ago. She is on antibiotics but doesnt know what kind. Reports fevers up to 101. Timing/Duration: 1-2 Days Severity/Quality: Moderate Radiation: No Radiation Activities at Onset: None Associated Symptoms: Denies Symptoms Allergies and Home Medications Allergies Uncoded Allergies: steri strips (Allergy, Intermediate, rash, 04/01/17) Home Medications Cephalexin 500 Mg Capsule, 500 MG PO TID Prescribed by: MERE DAVIS on 04/07/17 0450 Docusate Sodium 100 Mg Capsule, 100 MG PO BID Prescribed by: ZOYA ULLOA on 04/02/17 075 Estradiol 1 Mg Tablet, PO DAILY, (Reported) Ibuprofen 800 Mg Tablet, 800 MG PO Q6HR Prescribed by: ZOYA ULLOA on 04/02/17 075 Melatonin 3 Mg Tablet, 3 MG PO HS, (Reported) Oxycodone HCl/Acetaminophen 1 Each Tablet, 1-2 TAB PO Q6H PRN for PAIN-MILD TO MODERATE Prescribed by: ZOYA ULLOA on 04/02/17 075 Patient Home Medication List Home Medication List Reviewed: Yes Review of Systems Review of Systems Constitutional: see HPI EENTM: See HPI Respiratory: No Symptoms Reported Cardiovascular: No Symptoms Reported Gastrointestinal: See HPI, Abdominal Pain; Denies Constipated, Denies Diarrhea; Nausea Genitourinary: No Symptoms Reported Musculoskeletal: no symptoms reported Skin: no symptoms reported Psychiatric/Neurological: No Symptoms Reported Endocrine: No Symptoms Reported Past [place]-Ofpqvq-Aoxkds Hx Patient Social History Alcohol Use: Denies Use Recreational Drug Use: No Type Used: Cigarettes Recent Foreign Travel: No Contact w/Someone Who Travel: No Recent Hopitalizations: No Physical Abuse: No Sexual Abuse: No Mistreated: No Fear: No Immunizations Up To Date Date of Pneumonia Vaccine: Oct 24, 2010 Seasonal Allergies Seasonal Allergies: Yes (MILD) Past Medical History Surgeries: Yes (hand surgery status post degloving injury X 12) Bladder Surgery, Gallbladder, Tubal Ligation Respiratory: No Cardiac: No Neurological: No 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) Female Reproductive Disorders: Denies [employer] History: Tubal Ligation, Menopausal Sexually Transmitted Disease: No HIV/AIDS: No Genitourinary: No Gastrointestinal: No Musculoskeletal: Yes Arthritis, Chronic Back Pain Endocrine: No Loss of Vision: Bilateral Hearing Impairment: Denies Cancer: No Psychosocial: No Integumentary: No Blood Disorders: No Adverse Reaction/Blood Tranf: No (N/A) Physical Exam Vital Signs Vital Signs - First Documented 06/17/19 21:53 Temp 99.1 Pulse 80 Resp 18 B/P (MAP) 155/92 (113) Pulse Ox 98 O2 Delivery Room Air Capillary Refill : Height/Weight/BMI Height: 5'4.00" Weight: 232lbs. 7.0oz. 105.428136bb; 40.9 BMI Method:Stated General Appearance: WD/WN, no apparent distress HEENT: PERRL/EOMI, normal ENT inspection Respiratory: no respiratory distress, no accessory muscle use Gastrointestinal: normal bowel sounds, soft, tenderness (LLQ) Extremities: normal range of motion, non-tender Neurologic/Psychiatric: alert, normal mood/affect, oriented x 3 Skin: normal color, warm/dry Progress/Results/Core Measures Results/Orders Lab Results Laboratory Tests Test 06/17/19 22:01 06/17/19 22:06 Range/Units Urine Color YELLOW Urine Clarity CLEAR Urine pH 5 5-9 Urine Specific [place] 1.025 H 1.016-1.022 Urine Protein NEGATIVE NEGATIVE Urine Glucose (UA) NEGATIVE NEGATIVE Urine Ketones NEGATIVE NEGATIVE Urine Nitrite NEGATIVE NEGATIVE Urine Bilirubin NEGATIVE NEGATIVE Urine Urobilinogen NORMAL NORMAL MG/DL Urine Leukocyte Esterase 1+ H NEGATIVE Urine RBC (Auto) NEGATIVE NEGATIVE Urine RBC NONE /HPF Urine WBC 2-5 /HPF Urine Squamous Epithelial Cells 5-10 /HPF Urine Crystals NONE /LPF Urine Bacteria FEW H /HPF Urine Casts NONE /LPF Urine Mucus NEGATIVE /LPF Urine Culture Indicated NO White Blood Count 6.8 4.3-11.0 10^3/uL Red Blood Count 4.90 4.35-5.85 10^6/uL Hemoglobin 13.3 11.5-16.0 G/DL Hematocrit 40 35-52 % Mean Corpuscular Volume 82 80-99 FL Mean Corpuscular Hemoglobin 27 25-34 PG Mean Corpuscular Hemoglobin Concent 33 32-36 G/DL Red Cell Distribution Width 14.2 10.0-14.5 % Platelet Count 212 130-400 10^3/uL Mean Platelet Volume 10.3 7.4-10.4 FL Neutrophils (%) (Auto) 66 42-75 % Lymphocytes (%) (Auto) 23 12-44 % Monocytes (%) (Auto) 9 0-12 % Eosinophils (%) (Auto) 2 0-10 % Basophils (%) (Auto) 0 0-10 % Neutrophils # (Auto) 4.5 1.8-7.8 X 10^3 Lymphocytes # (Auto) 1.6 1.0-4.0 X 10^3 Monocytes # (Auto) 0.6 0.0-1.0 X 10^3 Eosinophils # (Auto) 0.1 0.0-0.3 10^3/uL Basophils # (Auto) 0.0 0.0-0.1 10^3/uL Sodium Level 142 135-145 MMOL/L Potassium Level 3.5 L 3.6-5.0 MMOL/L Chloride Level 104 98-107 MMOL/L Carbon Dioxide Level 27 21-32 MMOL/L Anion Gap 11 5-14 MMOL/L Blood Urea Nitrogen 11 7-18 MG/DL Creatinine 0.94 0.60-1.30 MG/DL Estimat Glomerular Filtration Rate > 60 BUN/Creatinine Ratio 12 Glucose Level 151 H 70-105 MG/DL Calcium Level 9.4 8.5-10.1 MG/DL Corrected Calcium 9.4 8.5-10.1 MG/DL Total Bilirubin 0.4 0.1-1.0 MG/DL Aspartate Amino Transf (AST/SGOT) 32 5-34 U/L Alanine Aminotransferase (ALT/SGPT) 47 0-55 U/L Alkaline Phosphatase 73 40-136 U/L Total Protein 6.6 6.4-8.2 GM/DL Albumin 4.0 3.2-4.5 GM/DL My Orders Orders - ALEXIA CROSS APRN Cbc With Automated Diff (06/17/19 21:25) Comprehensive Metabolic Panel (06/17/19 21:25) Overnight Continous Pulse Ox (06/17/19 21:25) Ua Culture If Indicated (06/17/19 21:25) Ed Iv/Invasive Line Start (06/17/19 21:25) Ondansetron Injection (Zofran Injectio (06/17/19 22:00) Fentanyl Injection (Sublimaze Injection (06/17/19 22:00) Ct Abd/Pelvis Wo(Kidney Stone) (06/17/19 21:59) Medications Given in ED Current Medications Medications Dose Ordered Sig/Crystal Route Start Time Stop Time Status Last Admin Dose Admin Fentanyl Citrate 50 mcg ONCE ONCE IVP 06/17/19 22:00 06/17/19 22:01 DC 06/17/19 22:07 50 MCG Ondansetron HCl 4 mg ONCE ONCE IVP 06/17/19 22:00 06/17/19 22:01 DC 06/17/19 22:07 4 MG Vital Signs/I&O 06/17/19 21:53 Temp 99.1 Pulse 80 Resp 18 B/P (MAP) 155/92 (113) Pulse Ox 98 O2 Delivery Room Air Departure Impression Primary Impression: LLQ abdominal pain Additional Impression: Diverticular disease Disposition: HOME, SELF-CARE Condition: Stable Departure-Patient Inst. Decision time for Depature: 22:45 Referrals: [facility] (PCP/Family) Primary Care Physician Patient Instructions: Diverticulosis (DC) Add. Discharge Instructions: 1. Call your surgeon tomorrow for an appointment for follow up 2. MEdication as directed 3. Return to ER for any concerns 4. Continue the antibiotics prescribed by [facility]. All discharge instructions reviewed with patient and/or family. Voiced understanding. ALEXIA CROSS APRN Jun 17, 2019 21:56
[2019-06-17] MEDS ORDERED: fentaNYL INJECTION 100 MCG/2 ML AMP IVP ONE (22:00)
[2019-06-17] MEDS ORDERED: ONDANSETRON 4 MG/2 ML (SDV) Z0FRAN IVP ONE (22:00)
[2019-06-17 22:06] LABS: BILIRUBIN,URINE NEGATIVE (NEGATIVE); CLARITY,URINE CLEAR; COLOR,URINE YELLOW; GLUCOSE, URINE (UA) NEGATIVE (NEGATIVE); KETONES,URINE NEGATIVE (NEGATIVE); LEUKOCYTE ESTERASE ,URINE 1+ (NEGATIVE); NITRITE,URINE NEGATIVE (NEGATIVE); PH,URINE 5 (5-9); PROTEIN,URINE NEGATIVE (NEGATIVE); UROBILINOGEN,URINE NORMAL (NORMAL)
[2019-06-17 22:13] LABS: BASOPHILS % (AUTO) 0 % (0-10); EOSINOPHILS # (AUTO) 0.1 10^3/uL (0.0-0.3); EOSINOPHILS % (AUTO) 2 % (0-10); HEMATOCRIT 40 % (35-52); HEMOGLOBIN 13.3 G/DL (11.5-16.0); LYMPHOCYTES # (AUTO) 1.6 X 10^3 (1.0-4.0); LYMPHOCYTES % (AUTO) 23 % (12-44); MEAN CORPUSCULAR HEMOGLOBIN 27 PG (25-34); MEAN CORPUSCULAR HGB CONC 33 G/DL (32-36); MEAN CORPUSCULAR VOLUME 82 FL (80-99); MEAN PLATELET VOLUME 10.3 FL (7.4-10.4); MONOCYTES # (AUTO) 0.6 X 10^3 (0.0-1.0); MONOCYTES % (AUTO) 9 % (0-12); NEUTROPHILS # (AUTO) 4.5 X 10^3 (1.8-7.8); NEUTROPHILS % (AUTO) 66 % (42-75); PLATELET COUNT 212 10^3/uL (130-400); RED CELL DISTRIBUTION WIDTH 14.2 % (10.0-14.5); WHITE BLOOD COUNT 6.8 10^3/uL (4.3-11.0)
[2019-06-17 22:14] LABS: BACTERIA,URINE FEW /HPF
[2019-06-17 22:32] LABS: ALANINE AMINOTRANSFERASE 47 U/L (0-55); ALKALINE PHOSPHATASE 73 U/L (40-136); BILIRUBIN,TOTAL 0.4 MG/DL (0.1-1.0); BUN/CREATININE RATIO 12; CALCIUM 9.4 MG/DL (8.5-10.1); CARBON DIOXIDE 27 MMOL/L (21-32); CHLORIDE 104 MMOL/L (98-107); CREATININE SERUM 0.94 MG/DL (0.60-1.30); GFR ESTIMATED > 60; GLUCOSE 151 MG/DL (70-105); POTASSIUM 3.5 MMOL/L (3.6-5.0); SODIUM 142 MMOL/L (135-145); TOTAL PROTEIN 6.6 GM/DL (6.4-8.2)
[2019-06-17] MEDS ORDERED: RX-ONDANSETRON 4 MG ODT (ZOFRAN) PPK #4 PO STA (22:46)
[2019-06-17] MEDS ORDERED: RX-HYDROCODONE/APAP 5/325 MG #4 TAB PK PO PRN (23:00)
[2019-06-17 23:13] VITALS: BP 117/60
--- NOTE | 2019-06-18 06:34 | Diagnostic Imaging Report ---
TECHNIQUE: Multiple contiguous axial images were obtained through the abdomen and pelvis without the use of intravenous contrast. Auto Exposure Controls were utilized during the CT exam to meet ALARA standards for radiation dose reduction. INDICATION: Fever, question diverticulitis. Abdominal pain. EXAMINATION: CT abdomen and pelvis without contrast, 06/17/2019. COMPARISON: 01/30/2019 FINDINGS: Visualized lung bases clear. Chronic findings in the osseous structures, evidence of previous cholecystectomy. A nonopacified abdominal viscera limited. No gross abnormality appreciated within the liver or spleen, pancreas or right adrenal gland. Left adrenal gland contains a small nodule too small for characterization at this time. Both kidneys demonstrate no evidence for acute abnormality. No nephrolithiasis is seen. There are no ureteral stones. No hydronephrosis although calcifications along the expected course of both ureters are noted; these are likely phleboliths. There is no evidence for free air or free fluid in the abdomen nor pelvis. Diverticulosis noted without evidence for diverticulitis. Findings of mild constipation. Fat-containing inguinal hernia on the left. Appendix unremarkable. IMPRESSION: 1. Incidental findings, see above description. No acute abnormality appreciated at this time. Dictated by: Dictated on workstation # [id number]
== END 2019-06-17 23:12 | disposition home or self-care (01) ==
LOC: EDUNIT# 21:20 → ER 21:23
DX: K57.90 Diverticulosis of intestine, part unspecified, without perforation or abscess without bleeding (principal); Z88.8 Allergy status to other drugs, medicaments and biological substances; Z98.51 Tubal ligation status
CPT/HCPCS: 36415; 74176; 80053; 81000; 85025

== ENCOUNTER → 2019-06-21 | Day surgery (SDC) | payer BC ==
[2019-06-21] VITALS (7 sets, daily range): BP systolic 122–132; BP diastolic 72–86
[~2019-06-21] VITALS: Ht 162.6 cm; Wt 105.4 kg
[~2019-06-21] MED LIST changes: +BUP/EPI 0.25% 1:200,000 (MARCAINE) 10 ML VIAL IJ ONE; +GLYCOPYRROLATE 0.2 MG/ML (ROBINUL) 2 ML VIAL ONE; +KETOROLAC 30 MG/ML VIAL IVP STA; +LACTATED RINGERS 1,000 ML IV PRN; +LIDOCAINE PF 2% 5 ML (XYLOCAINE) VIAL ONE; +MEPERIDINE (DEMEROL) INJ 50 MG/ML IVP ONE; +MIDAZOLAM 2 MG/2 ML (VERSED) VIAL ONE; +NEOSTIGMINE 3 MG/3 ML VIAL ONE; +ONDANSETRON 4 MG/2 ML (SDV) Z0FRAN IVP PRN; +ONDANSETRON 4 MG/2 ML (SDV) Z0FRAN ONE; +ROCURONIUM 10 MG/ML 5 ML SYRINGE IV ONE; +SEVOFLURANE (ULTANE) 15 ML INHAL SOLN ONE; +SUCCINYLCHOLINE INJ 100 MG/5 ML SYR ONE; +ceFAZolin 2 GM/50 ML NS 50 ML IV ONE; +ceFAZolin INJECTION 2,000 MG ONE; +fentaNYL INJECTION 100 MCG/2 ML AMP IVP ONE; +fentaNYL INJECTION 100 MCG/2 ML AMP ONE; +morphine INJ 10 MG/ML 1ML (SYR OR VIAL) IVP ONE; +morphine INJ 10 MG/ML 1ML (SYR OR VIAL) ONE; +proPOfol 200 MG/20 ML (DIPRIVAN) VIAL IV ONE
--- NOTE | 2019-06-21 12:11 | ED Abdominal Pain ---
General Chief Complaint: Abdominal/GI Problems Stated Complaint: ABD PAIN Nursing Triage Note: PT AMB TO RM 6 WITH COMPLAINT OF LLQ ABD PAIN. STATES HAS BEEN GOING ON FOR OVER A WEEK. HAS BEEN SEEN IN ER AND [facility] FOR SYMPTOMS. Sepsis Screen: No Definite Risk Source of Information: Patient Exam Limitations: No Limitations History of Present Illness Date Seen by Provider: Jun 21, 2019 Time Seen by Provider: 11:49 Initial Comments Here with report of persistent left lower quadrant abdominal pain that is worse now. More in the groin area. Denies nausea or vomiting. Denies diarrhea. Has had bowel movements. Pain has gotten worse over the last few days. Seen for this a few days ago. Has been treated for diverticulitis and that has not changing things. Also given prescription for Flexeril at the clinic and that has not changed things. Denies blood in her stool or urine. Timing/Duration: 1 Week, Getting Worse Severity/Quality: Moderate, Aching Location: LLQ Radiation: Groin Activities at Onset: None Modifying Factors: Worsens With Movement; Improves With Resting Associated Symptoms: No Back Pain, No Chest Pain, No Fever/Chills, No Nausea/Vomiting, No Shortness of Air, No Swelling/Mass in Abdomen, No Weakness Allergies and Home Medications Allergies Uncoded Allergies: steri strips (Allergy, Intermediate, rash, 04/01/17) Home Medications Cephalexin 500 Mg Capsule, 500 MG PO TID Prescribed by: MERE DAVIS on 04/07/17 0450 Docusate Sodium 100 Mg Capsule, 100 MG PO BID Prescribed by: ZOYA ULLOA on 04/02/17 075 Estradiol 1 Mg Tablet, PO DAILY, (Reported) Ibuprofen 800 Mg Tablet, 800 MG PO Q6HR Prescribed by: ZOYA ULLOA on 04/02/17751 Melatonin 3 Mg Tablet, 3 MG PO HS, (Reported) Oxycodone HCl/Acetaminophen 1 Each Tablet, 1-2 TAB PO Q6H PRN for PAIN-MILD TO MODERATE Prescribed by: ZOYA ULLOA on 04/02/17751 Patient Home Medication List Home Medication List Reviewed: Yes Review of Systems Review of Systems Constitutional: see HPI; No chills, No fever EENTM: No Symptoms Reported Respiratory: No Symptoms Reported Cardiovascular: No Symptoms Reported Gastrointestinal: See HPI, Abdominal Pain; Denies Diarrhea, Denies Nausea Genitourinary: Denies Flank Pain, Denies Pain Musculoskeletal: see HPI; No joint pain; muscle pain Skin: no symptoms reported Psychiatric/Neurological: No Symptoms Reported All Other Systems Reviewed Negative Unless Noted: Yes Past Uteinyt-Zgdjfa-Hewiqi Hx Past Med/Social Hx: Reviewed Nursing Past Med/Soc Hx Patient Social History Alcohol Use: Denies Use Recreational Drug Use: No Smoking Status: Former Smoker Type Used: Cigarettes Recent Foreign Travel: No Contact w/Someone Who Travel: No Recent Infectious Disease Expo: No Recent Hopitalizations: No Physical Abuse: No Sexual Abuse: No Mistreated: No Fear: No Immunizations Up To Date Date of Pneumonia Vaccine: Oct 24, 2010 Seasonal Allergies Seasonal Allergies: Yes (MILD) Past Medical History Surgeries: Yes (hand surgery status post degloving injury X 12) Bladder Surgery, Gallbladder, Tubal Ligation Respiratory: No Cardiac: No Neurological: No 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) 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, Menopausal Sexually Transmitted Disease: No HIV/AIDS: No Genitourinary: No Gastrointestinal: No Musculoskeletal: Yes Arthritis, Chronic Back Pain Endocrine: No Loss of Vision: Bilateral Hearing Impairment: Denies Cancer: No Psychosocial: No Integumentary: No Blood Disorders: No Adverse Reaction/Blood Tranf: No (N/A) Family Medical History Reviewed Nursing Family Hx No Pertinent Family Hx Physical Exam Vital Signs Vital Signs - First Documented 06/21/19 11:40 Temp 98.9 Pulse 117 Resp 16 B/P (MAP) 130/93 (105) Pulse Ox 98 O2 Delivery Room Air Capillary Refill : Less Than 3 Seconds Height/Weight/BMI Height: 5'4.00" Weight: 232lbs. 7.0oz. [id number]; 40.9 BMI Method:Stated General Appearance: WD/WN, mild distress HEENT: PERRL/EOMI, pharynx normal Neck: full range of motion, supple Respiratory: lungs clear, normal breath sounds Cardiovascular: regular rate, rhythm, no murmur Gastrointestinal: soft, tenderness Extremities: other (tender at the area of the left groin) Back: normal inspection, no CVA tenderness, no vertebral tenderness Neurologic/Psychiatric: alert, oriented x 3 Skin: normal color, warm/dry Progress/Results/Core Measures Results/Orders Lab Results Laboratory Tests Test 06/21/19 12:15 Range/Units White Blood Count 6.9 4.3-11.0 10^3/uL Red Blood Count 5.55 4.35-5.85 10^6/uL Hemoglobin 14.9 11.5-16.0 G/DL Hematocrit 45 35-52 % Mean Corpuscular Volume 81 80-99 FL Mean Corpuscular Hemoglobin 27 25-34 PG Mean Corpuscular Hemoglobin Concent 33 32-36 G/DL Red Cell Distribution Width 14.5 10.0-14.5 % Platelet Count 240 130-400 10^3/uL Mean Platelet Volume 10.8 H 7.4-10.4 FL Neutrophils (%) (Auto) 70 42-75 % Lymphocytes (%) (Auto) 20 12-44 % Monocytes (%) (Auto) 9 0-12 % Eosinophils (%) (Auto) 1 0-10 % Basophils (%) (Auto) 0 0-10 % Neutrophils # (Auto) 4.8 1.8-7.8 X 10^3 Lymphocytes # (Auto) 1.4 1.0-4.0 X 10^3 Monocytes # (Auto) 0.6 0.0-1.0 X 10^3 Eosinophils # (Auto) 0.1 0.0-0.3 10^3/uL Basophils # (Auto) 0.0 0.0-0.1 10^3/uL Urine Color YELLOW Urine Clarity CLEAR Urine pH 5 5-9 Urine Specific Hilliard 1.025 H 1.016-1.022 Urine Protein 1+ H NEGATIVE Urine Glucose (UA) NEGATIVE NEGATIVE Urine Ketones 1+ H NEGATIVE Urine Nitrite NEGATIVE NEGATIVE Urine Bilirubin NEGATIVE NEGATIVE Urine Urobilinogen NORMAL NORMAL MG/DL Urine Leukocyte Esterase 2+ H NEGATIVE Urine RBC (Auto) NEGATIVE NEGATIVE Urine RBC RARE /HPF Urine WBC 5-10 H /HPF Urine Crystals PRESENT H /LPF Urine Calcium Oxalate Crystals LARGE H /LPF Urine Bacteria FEW H /HPF Urine Casts PRESENT /LPF Urine Hyaline Casts 0-2 H /LPF Urine Granular Casts RARE /LPF Urine Mucus SMALL H /LPF Urine Culture Indicated YES Sodium Level 143 135-145 MMOL/L Potassium Level 3.7 3.6-5.0 MMOL/L Chloride Level 106 98-107 MMOL/L Carbon Dioxide Level 23 21-32 MMOL/L Anion Gap 14 5-14 MMOL/L Blood Urea Nitrogen 14 7-18 MG/DL Creatinine 0.84 0.60-1.30 MG/DL Estimat Glomerular Filtration Rate > 60 BUN/Creatinine Ratio 17 Glucose Level 103 70-105 MG/DL Calcium Level 9.9 8.5-10.1 MG/DL Corrected Calcium 9.6 8.5-10.1 MG/DL Total Bilirubin 0.4 0.1-1.0 MG/DL Aspartate Amino Transf (AST/SGOT) 39 H 5-34 U/L Alanine Aminotransferase (ALT/SGPT) 49 0-55 U/L Alkaline Phosphatase 89 40-136 U/L C-Reactive Protein High Sensitivity 0.50 0.00-0.50 MG/DL Total Protein 7.7 6.4-8.2 GM/DL Albumin 4.4 3.2-4.5 GM/DL My Orders Orders - FRANCES MUNOZ MD Cbc With Automated Diff (06/21/19 11:56) Comprehensive Metabolic Panel (06/21/19 11:56) Hs C Reactive Protein (06/21/19 11:56) Ua Culture If Indicated (06/21/19 11:56) Ed Iv/Invasive Line Start (06/21/19 11:56) Ketorolac Injection (Toradol Injection) (06/21/19 12:02) Urine Culture (06/21/19 12:15) Vital Signs/I&O 06/21/19 11:40 Temp 98.9 Pulse 117 Resp 16 B/P (MAP) 130/93 (105) Pulse Ox 98 O2 Delivery Room Air Blood Pressure Mean: 105 Progress Progress Note : Progress Note Seen and evaluated. IV, labs, UA, Toradol 30 mg IV ordered. Monitor patient. 1310: Labs reviewed. I did discuss the case with Dr. Edward, surgeon on-call reg arding the fat-containing hernia. He will come see the patient in the emergency department. 1400: Dr. Edward has seen the patient. She will go to the OR tonight at 6 PM for hernia repair. Patient is requesting this and is in agreement. We will hold her in the emergency department until time to go to the OR. Overall is doing better. Pending transfer to the OR. Departure Impression Primary Impression: Irreducible left inguinal hernia Disposition: ADMITTED INPATIENT Condition: Stable Admissions Decision to Admit Reason: Admit from ER (General) Decision to Admit/Date: Jun 21, 2019 Time/Decision to Admit Time: 14:00 Departure-Patient Inst. Ref[place]: [facility] [place] Primary Care Physician FRANCES MUNOZ MD Jun 21, 2019 12:11
[2019-06-21 12:36] LABS: BASOPHILS % (AUTO) 0 % (0-10); EOSINOPHILS # (AUTO) 0.1 10^3/uL (0.0-0.3); EOSINOPHILS % (AUTO) 1 % (0-10); HEMATOCRIT 45 % (35-52); HEMOGLOBIN 14.9 G/DL (11.5-16.0); LYMPHOCYTES # (AUTO) 1.4 X 10^3 (1.0-4.0); LYMPHOCYTES % (AUTO) 20 % (12-44); MEAN CORPUSCULAR HEMOGLOBIN 27 PG (25-34); MEAN CORPUSCULAR HGB CONC 33 G/DL (32-36); MEAN CORPUSCULAR VOLUME 81 FL (80-99); MEAN PLATELET VOLUME 10.8 FL (7.4-10.4); MONOCYTES # (AUTO) 0.6 X 10^3 (0.0-1.0); MONOCYTES % (AUTO) 9 % (0-12); NEUTROPHILS # (AUTO) 4.8 X 10^3 (1.8-7.8); NEUTROPHILS % (AUTO) 70 % (42-75); PLATELET COUNT 240 10^3/uL (130-400); RED CELL DISTRIBUTION WIDTH 14.5 % (10.0-14.5); WHITE BLOOD COUNT 6.9 10^3/uL (4.3-11.0)
[2019-06-21 12:49] LABS: CLARITY,URINE CLEAR; COLOR,URINE YELLOW; GLUCOSE, URINE (UA) NEGATIVE (NEGATIVE); PH,URINE 5 (5-9); PROTEIN,URINE 1+ (NEGATIVE)
[2019-06-21 12:50] LABS: BILIRUBIN,URINE NEGATIVE (NEGATIVE); KETONES,URINE 1+ (NEGATIVE); LEUKOCYTE ESTERASE ,URINE 2+ (NEGATIVE); NITRITE,URINE NEGATIVE (NEGATIVE); UROBILINOGEN,URINE NORMAL (NORMAL)
[2019-06-21 12:52] LABS: CALCIUM OXALATE CRYSTALS,UR LARGE /LPF
[2019-06-21 12:55] LABS: ALANINE AMINOTRANSFERASE 49 U/L (0-55); ALBUMIN 4.4 GM/DL (3.2-4.5); ALKALINE PHOSPHATASE 89 U/L (40-136); BILIRUBIN,TOTAL 0.4 MG/DL (0.1-1.0); BUN/CREATININE RATIO 17; CALCIUM 9.9 MG/DL (8.5-10.1); CARBON DIOXIDE 23 MMOL/L (21-32); CHLORIDE 106 MMOL/L (98-107); CREATININE SERUM 0.84 MG/DL (0.60-1.30); GFR ESTIMATED > 60; GLUCOSE 103 MG/DL (70-105); POTASSIUM 3.7 MMOL/L (3.6-5.0); SODIUM 143 MMOL/L (135-145); TOTAL PROTEIN 7.7 GM/DL (6.4-8.2)
[2019-06-21 12:57] LABS: HYALINE CASTS, URINE 0-2 /LPF
[2019-06-21 12:59] LABS: GRANULAR CASTS,URINE RARE /LPF; RBC,URINE RARE /HPF
[2019-06-21 13:00] LABS: BACTERIA,URINE FEW /HPF
--- NOTE | 2019-06-21 15:05 | Consultation - Surgery ---
History of Present Illness History of Present Illness Patient Consulted On(mack/time) 06/21/19 15:00 Time Seen by Provider: 14:02 History of Present Illness Surgery asked to consult regarding LLQ pain. HPI per ED: PT AMB TO RM 6 WITH COMPLAINT OF LLQ ABD PAIN. STATES HAS BEEN GOING ON FOR OVER A WEEK. HAS BEEN SEEN IN ER AND [facility] FOR SYMPTOMS. Here with report of persistent left lower quadrant abdominal pain that is worse now. More in the groin area. Denies nausea or vomiting. Denies diarrhea. Has had bowel movements. Pain has gotten worse over the last few days. Seen for this a few days ago. Has been treated for diverticulitis and that has not changing things. Also given prescription for Flexeril at the clinic and that has not changed things. Denies blood in her stool or urine. Timing/Duration: 1 Week, Getting Worse Severity/Quality: Moderate, Aching Location: LLQ Radiation: Groin Activities at Onset: None Modifying Factors: Worsens With Movement; Improves With Resting Associated Symptoms: No Back Pain, No Chest Pain, No Fever/Chills, No Nausea/Vomiting, No Shortness of Air, No Swelling/Mass in Abdomen, No Weakness When I spoke to pt she states the pain has been so bad she has missed 3 days of work; "and I never miss work". She describes a sharp stabbing pain that comes and goes; radiates to the back. She states it is worse when she bends over, with a lot of walking and if she lifts anything. Rated the pain as 3 out of 10 "for years", but worse past couple of weeks. Ibuprofen used to work for the pain and now only Hydrocodone is helping. Was given muscle relaxers which didn't touch the pain. Denied any associated GI symptoms. Allergies and Home Medications Allergies Uncoded Allergies: steri strips (Allergy, Intermediate, rash, 04/01/17) Home Medications Cephalexin 500 Mg Capsule, 500 MG PO TID Prescribed by: MERE DAVIS on 04/07/17 0450 Docusate Sodium 100 Mg Capsule, 100 MG PO BID Prescribed by: ZOYA ULLOA on 04/02/17 0752 Estradiol 1 Mg Tablet, PO DAILY, (Reported) Ibuprofen 800 Mg Tablet, 800 MG PO Q6HR Prescribed by: ZOYA ULLOA on 04/02/17 0752 Melatonin 3 Mg Tablet, 3 MG PO HS, (Reported) Oxycodone HCl/Acetaminophen 1 Each Tablet, 1-2 TAB PO Q6H PRN for PAIN-MILD TO MODERATE Prescribed by: ZOYA ULLOA on 04/02/17751 Patient Home Medication List Home Medication List Reviewed: Yes Past Isulgcv-Iustvj-Fxkldy Hx Patient Social History Alcohol Use: Denies Use Recreational Drug Use: No Smoking Status: Former Smoker Type Used: Cigarettes Recent Foreign Travel: No Contact w/Someone Who Travel: No Recent Infectious Disease Expo: No Recent Hopitalizations: No Immunizations Up To Date Date of Pneumonia Vaccine: Oct 24, 2010 Seasonal Allergies Seasonal Allergies: Yes (MILD) Surgeries History of Surgeries: Yes (hand surgery status post degloving injury X 12) Surgeries: Bladder Surgery, Gallbladder, Hysterectomy, Tubal Ligation Respiratory History of Respiratory Disorde: No Cardiovascular History of Cardiac Disorders: No Neurological History of Neurological Disord: No Reproductive System Hx 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) Sexually Transmitted Disease: No HIV/AIDS: No Female Reproductive Disorders: Denies NUTRITION ASSISTANT History: Tubal Ligation, Menopausal Genitourinary History of Genitourinary Disor: No Gastrointestinal History of Gastrointestinal Di: No Musculoskeletal History of Musculoskeletal Dis: Yes Musculoskeletal Disorders: Arthritis, Chronic Back Pain Endocrine History of Endocrine Disorders: No HEENT Loss of Vision: Bilateral Hearing Impairment: Denies Cancer History of Cancer: No Psychosocial History of Psychiatric Problem: No Integumentary History of Skin or Integumenta: No Blood Transfusions History of Blood Disorders: No Adverse Reaction to a Blood Tr: No (N/A) Family Medical History Significant Family History: Cancer (Father had Lung CA), COPD (Mother), Other Conditions/Hx (Mother had Guillan Alvin) Review of Systems-General Constitutional: No chills, No diaphoresis; weakness EENTM: No blurred vision, No mouth swelling, No epistaxis, No throat swelling Respiratory: No cough, No dyspnea on exertion, No hemoptysis Cardiovascular: No chest pain, No edema, No palpitations Gastrointestinal: abdominal pain; No constipation, No diarrhea, No jaundice, No nausea, No vomiting Genitourinary: No dysuria, No frequency, No hematuria Musculoskeletal: back pain; No joint pain; muscle pain, muscle stiffness Skin: No change in color, No change in hair/nails Psychiatric/Neurological: Denies Anxiety, Denies Depressed; Headache; Denies Seizure; Tremors Other denies abnormal bruising or bleeding, no heat or cold intolerance Physical Exam-General Problems Physical Exam Vital Signs Vital Signs - First Documented 06/21/19 11:40 Temp 98.9 Pulse 117 Resp 16 B/P (MAP) 130/93 (105) Pulse Ox 98 O2 Delivery Room Air Capillary Refill : Less Than 3 Seconds General Appearance: WD/WN, mild distress Eyes: Bilateral Eye PERRL, Bilateral Eye EOMI HEENT: pharynx normal; No scleral icterus (R), No scleral icterus (L) Neck: non-tender, normal inspection Respiratory: chest non-tender, lungs clear, normal breath sounds, no respiratory distress, no accessory muscle use Cardiovascular: regular rate, rhythm, no murmur Gastrointestinal: normal bowel sounds, soft, no organomegaly, no pulsatile mass, tenderness (left inguinal region), hernia (incarcerated left inguinal hernia) Rectal: deferred Extremities: normal range of motion, non-tender, normal inspection, no pedal edema, no calf tenderness, normal capillary refill, other (missing portion of left hand/fingers) Neurologic/Psychiatric: car top bolter II-XII nml as tested, no motor/sensory deficits, alert, normal mood/affect, oriented x 3 Skin: normal color, warm/dry Lymphatic: no adenopathy (neck, axilla or groin) Data Review Labs Laboratory Tests 06/21/19 12:15: White Blood Count 6.9, Red Blood Count 5.55, Hemoglobin 14.9, Hematocrit 45, Mean Corpuscular Volume 81, Mean Corpuscular Hemoglobin 27, Mean Corpuscular Hemoglobin Concent 33, Red Cell Distribution Width 14.5, Platelet Count 240, Mean Platelet Volume 10.8H, Neutrophils (%) (Auto) 70, Lymphocytes (%) (Auto) 20, Monocytes (%) (Auto) 9, Eosinophils (%) (Auto) 1, Basophils (%) (Auto) 0, Neutrophils # (Auto) 4.8, Lymphocytes # (Auto) 1.4, Monocytes # (Auto) 0.6, Eosinophils # (Auto) 0.1, Basophils # (Auto) 0.0, Urine Color YELLOW, Urine Clarity CLEAR, Urine pH 5, Urine Specific Bard 1.025H, Urine Protein 1+H, Urine Glucose (UA) NEGATIVE, Urine Ketones 1+H, Urine Nitrite NEGATIVE, Urine Bilirubin NEGATIVE, Urine Urobilinogen NORMAL, Urine Leukocyte Esterase 2+H, Urine RBC (Auto) NEGATIVE, Urine RBC RARE, Urine WBC 5-10H, Urine Crystals PRESENTH, Urine Calcium Oxalate Crystals LARGEH, Urine Bacteria FEWH, Urine Casts PRESENT, Urine Hyaline Casts 0-2H, Urine Granular Casts RARE, Urine Mucus SMALLH, Urine Culture Indicated YES, Sodium Level 143, Potassium Level 3.7, Chloride Level 106, Carbon Dioxide Level 23, Anion Gap 14, Blood Urea Nitrogen 14, Creatinine 0.84, Estimat Glomerular Filtration Rate > 60, BUN/Creatinine Ratio 17, Glucose Level 103, Calcium Level 9.9, Corrected Calcium 9.6, Total Bilirubin 0.4, Aspartate Amino Transf (AST/SGOT) 39H, Alanine Aminotransferase (ALT/SGPT) 49, Alkaline Phosphatase 89, C-Reactive Protein High Sensitivity 0.50, Total Protein 7.7, Albumin 4.4 Assessment/Plan Assessment/Plan Assessment/Plan Incarcerated Left inguinal Hernia Pt has worsening left lower quadrant pain and my concern is the incarcerated fat seen on CT could be becoming strangulated. I think pt needs Left inguinal herniarraphy with mesh placement. I did tell her that I can't promise 100% of her pain will be gone; but I really think this is the cause. We discussed the surgery in detail; going over risks and complications not limited to pain, bleeding, infection, scar and damage to bowel or bladder and need for further procedure. All questions answered to her satisfaction. Will go to the OR at 6pm (pt ate at 10am), needs consent and pre- op ABX; plan to send home after surgery. BRICE MOURA DO Jun 21, 2019 15:05
--- NOTE | 2019-06-21 18:25 | NUR ---
COURTNEY KAY admitted to room , with an admitting diagnosis of sepsis, uti, sacral wound, on from er via cart, accompanied by ed staff. COURTNEY KAY introduced to surroundings, call light, bed controls, phone, TV, temperature control, lights, meal times, smoking policy, visitor policy, side rail policy, bathrooms and showers. Patient Rights given to patient in the handbook. COURTNEY KAY verbalizes understanding that [facility] is not responsible for the loss or damage to any personal effects or valuables that are kept in the patients posession during their hospitalization. COURTNEY KAY verbalizes understanding of Interdisciplinary Patient Education. Patient and/or family were informed about the Rapid Response Team and its purpose. Addendum: 06/21/19 at 1832 by LY LEYVA RN WRONG PATIENT CHART
--- NOTE | 2019-06-21 19:18 | Progress Note-Post Operative ---
Post-Operative Progess Note Surgeon (s)/Prefabricator (s) Surgeon BRICE MOURA DO Prefabricator: none Pre-Operative Diagnosis Incarcerated Left Inguinal hernia Post-Operative Diagnosis Incarcerated Left inguinal hernia - indirect with a little bit of direct hernia Procedure & Operative Findings Date of Procedure 06/21/19 Procedure Performed/Findings Left Inguinal Herniarraphy with mesh placement Anesthesia Type GET Estimated Blood Loss Estimated blood loss (mL): scant Specimens/Packing Specimens Removed Hernia sac BRICE MOURA DO Jun 21, 2019 19:18
--- NOTE | 2019-06-21 19:25 | Discharge Inst-Surgical ---
Discharge Inst-Surgical Depart Medication/Instructions New, Converted or Re-Newed RX: Other (pt already has Rx) Patient Instructions Follow up Appt: Make appointment for 1 week. [phone] Instructions: No lifting greater than 20 pounds. No strenuous activity. May shower in 24 hours, no tub bath or soaking. Use incentive spirometer at home as directed. No Smoking Skin/Wound Care: May remove bandages in am. You need to leave the Dermabond on incision it will fall off on it's own. Symptoms to Report: Appetite Changes, Extremity Discoloration, Numbness/Tingling, Swelling Increased, Bleeding Excessive, Eyesight Changes, Pain Increased, Urine Color Change, Constipation(Persistent), Fever over 101 degree F, Pain/Pressure in chest, Urinating Difficulty, Cough Up/Vomit Blood, Heart Beat Irreg/Pounding, Pain/Pressure in jaw, Cramps in feet or legs, Lightheadedness, Pain/Pressure in shoulder, Diarrhea(Persistent), Memory Changes Suddenly, Questions/Concerns, Weight gain consecutive days, Dizziness/Fainting, Nausea/Vomiting, Shortness of Breath, Weight gain over 2 pounds If questions or concerns contact your physician Or seek help at emergency department. Activity Activity as Tolerated: Yes Activity Instructions: Avoid Stress to Incision Driving Instructions: No Driving/Refer to Dr. Null Discharge Diet: No Restrictions Diet After 24 Hours: Clear Liquid if Nauseous If Any Problems/Questions/Issu: Contact Your Physician, Go to Emergency Room Skin/Wound Care Infection Signs and Symptoms: Increased Redness, Foul Odor of Wound, Increased Drainage, Skin Itchy or Has a Rash, Increased Swelling, Temperature Above 101 F Bathing Instructions: Shower Stitches/[place]/Dermabond Dis: Dermabond Ice Pack: Ice On and Off Site (as needed for pain) BRICE MOURA DO Jun 21, 2019 19:25
--- NOTE | 2019-06-21 20:31 | NUR ---
COURTNEY KAY admitted to room 433, with an admitting diagnosis of POST OP HERNIA REPAIR , on from PAR via CART, accompanied by STAFF AND FAMILY. COURTNEY KAY introduced to surroundings, call light, bed controls, phone, TV, temperature control, lights, meal times, smoking policy, visitor policy, side rail policy, bathrooms and showers. Patient Rights given to patient in the handbook.COURTNEY KAY verbalizes understanding that [facility] is not responsible for the loss or damage to any personal effects or valuables that are kept in the patients posession during their hospitalization.
--- NOTE | 2019-06-21 22:10 | NUR ---
COURTNEY KAY demonstrates understanding of discharge instructions and accurately returns instructions upon questioning. Copy of Post-Discharge Instructions given to PT. COURTNEY KAY is able to manage continuing needs after discharge. Patients belongings returned to PT. Patient discharged from [facility] on 06/21/18 at 2210 . COURTNEY KAY left floor via WC, accompanied by STAFF AND FAMILY.
--- NOTE | 2019-06-22 01:47 | OPERATIVE REPORT ---
DATE OF SERVICE: PREOPERATIVE DIAGNOSIS: Incarcerated left inguinal hernia. POSTOPERATIVE DIAGNOSIS: Incarcerated left inguinal hernia and indirect with small direct component. PROCEDURE: Left inguinal herniorrhaphy and mesh placement. SURGEON: Renan Edward DO. SLUBBER FRAME CHANGER: None. ANESTHESIA: General endotracheal tube. SPECIMEN: Hernia sac. BLOOD LOSS: Scant. FLUIDS: Per anesthesia. POSTOPERATIVE CONDITION: Stable. INDICATION FOR PROCEDURE: The patient is a 53-year-old female, who has pain in the left inguinal region diagnosed with incarcerated inguinal hernia. FINDINGS: The patient had an incarcerated left inguinal hernia was an indirect hernia with omental fat did not look necrotic push this back in, it is a little bit of a direct component. PROCEDURE NOTE: After informed consent was obtained, the patient was brought to the operating room, placed on the operating table in supine position, sterilely prepped and draped in normal fashion. Local lidocaine was used to perform an ilioinguinal nerve block as well as pubic tubercle block and then infiltrated left inguinal region with local, then made an incision with #15 blade, carried down through the skin into subcutaneous tissue, deepened down to subcutaneous tissue with Bovie electrocautery down to the fascia. Fascia of the external oblique was then infiltrated external oblique fascia with local and then incised through the external inguinal ring with Bovie electrocautery. Able to get around the round ligament, cut the round ligament off distally and tied off with 2-0 Vicryl and then found on medially and superiorly on the round ligament and found the hernia sac opened this up, found some incarcerated omental fat. It was looked viable push this back in and then suture ligated the hernia sac with 2-0 Vicryl and then did a 2-0 Vicryl tie. Cut the hernia sac passed off table ligated the round ligament high and tied this off with a 2-0 Vicryl. I then elected to close the floor of the inguinal canal to support this with some 0 Vicryl and then placed a Bard mesh, 3 x 6 mesh cut to about 2 x 6, suture once the pubic tubercle with 2-0 Vicryl sutured laterally at the shelving portion of Poupart's ligament with a 2-0 Vicryl. It laid in nicely, very flat, placed rest of the upper external oblique fascia and then elected to close the external oblique fascia with 3-0 Vicryl running suture, thereby recreating the external inguinal ring. At this point, then closed Zoltan's fascia with 3-0 Vicryl interrupted sutures then closed the skin with 4-0 undyed Monocryl in subcuticular fashion. Area was cleaned and dried and Dermabond placed as well as a pressure dressing. The patient tolerated the procedure and transferred to recovery room in stable condition. Sponge, instrument and needle count correct at the end of the case. Job ID: [id number] DocumentID: [id number] Dictated Date: 06/21/2019 19:46:48 Clinical Research Manager Date: 06/22/2019 01:47:02 Dictated By: RENAN EDWARD DO
--- NOTE | 2019-06-22 07:38 | Anesthesia-General Post-Op ---
General Patient Condition Mental Status/LOC: Same as Preop Cardiovascular: Satisfactory Nausea/Vomiting: Absent Respiratory: Satisfactory Pain: Controlled Complications: Absent Post Op Complications Complications None Follow Up Care/Instructions Patient Instructions None needed. Anesthesia/Patient Condition Patient Condition Patient is doing well, no complaints, stable vital signs, no apparent adverse anesthesia problems. No complications reported per nursing. MAURA LOPEZ CRNA Jun 22, 2019 07:37
== END | disposition home or self-care (01) ==
LOC: EDUNIT# 11:28 → ER 11:29 → SDC 17:37
PROVIDERS: ATTEND Surgery
DX: K40.30 Unilateral inguinal hernia, with obstruction, without gangrene, not specified as recurrent (principal); J30.2 Other seasonal allergic rhinitis; Z87.891 Personal history of nicotine dependence; Z79.899 Other long term (current) drug therapy
CPT/HCPCS: 36415; 80053; 81000; 85025; 86141; 87088

== ENCOUNTER → 2019-07-24 | Outpatient (CLI) | payer BC ==
[~2019-07-24] MED LIST changes: -BUP/EPI 0.25% 1:200,000 (MARCAINE) 10 ML VIAL IJ ONE; -GLYCOPYRROLATE 0.2 MG/ML (ROBINUL) 2 ML VIAL ONE; -KETOROLAC 30 MG/ML VIAL IVP STA; -LACTATED RINGERS 1,000 ML IV PRN; -LIDOCAINE PF 2% 5 ML (XYLOCAINE) VIAL ONE; -MEPERIDINE (DEMEROL) INJ 50 MG/ML IVP ONE; -MIDAZOLAM 2 MG/2 ML (VERSED) VIAL ONE; -NEOSTIGMINE 3 MG/3 ML VIAL ONE; -ONDANSETRON 4 MG/2 ML (SDV) Z0FRAN IVP PRN; -ONDANSETRON 4 MG/2 ML (SDV) Z0FRAN ONE; -ROCURONIUM 10 MG/ML 5 ML SYRINGE IV ONE; -SEVOFLURANE (ULTANE) 15 ML INHAL SOLN ONE; -SUCCINYLCHOLINE INJ 100 MG/5 ML SYR ONE; -ceFAZolin 2 GM/50 ML NS 50 ML IV ONE; -ceFAZolin INJECTION 2,000 MG ONE; -fentaNYL INJECTION 100 MCG/2 ML AMP IVP ONE; -fentaNYL INJECTION 100 MCG/2 ML AMP ONE; -morphine INJ 10 MG/ML 1ML (SYR OR VIAL) IVP ONE; -morphine INJ 10 MG/ML 1ML (SYR OR VIAL) ONE; -proPOfol 200 MG/20 ML (DIPRIVAN) VIAL IV ONE
--- NOTE | 2019-07-26 19:06 | Diagnostic Imaging Report ---
EXAMINATION: Digital mammogram bilateral screening. The current study was also evaluated with a Computer Aided Detection (CAD) system. 3-D tomosynthesis was also performed and reviewed. INDICATION: Screening. This study was compared with the prior exam of 09/27/2012. At this time, there are no current complaints. FINDINGS: There are scattered fibroglandular densities in both breasts which could obscure a lesion. When compared to the prior study, there has been no significant change. There is no primary or secondary sign of malignancy noted. The 3D tomographic views also fail to show any sign of malignancy. IMPRESSION: 1. There is no evidence of malignancy. 2. The patient should have her annual bilateral screening mammogram on schedule in July 2020. ACR BI-RADS Category 1: Negative. Result letter will be mailed to the patient. Note: At least 10% of breast cancer is not imaged by mammography. Dictated by: Dictated on workstation # [id number]
== END ==
LOC: RAD 14:32
PROVIDERS: ATTEND Family Medicine
DX: Z12.31 Encounter for screening mammogram for malignant neoplasm of breast (principal)
CPT/HCPCS: 77067

== ENCOUNTER 2019-08-13 06:35 | Outpatient (CLI) | payer BC ==
[~2019-08-13] VITALS: Ht 162.5 cm; Wt 105.0 kg
[2019-08-13] MEDS ORDERED: NAPR-1070 PO (14:00)
[2019-08-13] MEDS ORDERED: LISI-552 PO (14:00)
== END 2019-08-13 14:40 | disposition home or self-care (01) ==
LOC: PREOP 06:35
PROVIDERS: ATTEND Surgery
DX: Z01.818 Encounter for other preprocedural examination (principal)

== ENCOUNTER 2019-08-20 08:09 | Day surgery (SDC) | payer BC ==
[~2019-08-20] VITALS: Ht 162.5 cm; Wt 105.0 kg
[~2019-08-20 08:09] MED LIST changes: +LISI-552 PO; +NAPR-1070 PO
[2019-08-20] MEDS ORDERED: LACTATED RINGERS 1,000 ML IV STA (08:17)
[2019-08-20] MEDS ORDERED: LACTATED RINGERS 1,000 ML IV ONE (08:17)
[2019-08-20 08:30] VITALS: BP 132/85
[2019-08-20] MEDS ORDERED: MIDAZOLAM 2 MG/2 ML (VERSED) VIAL ONE (09:11)
[2019-08-20] MEDS ORDERED: KETAMINE/NaCl 50 MG/5 ML SYRINGE ONE (09:11)
[2019-08-20] MEDS ORDERED: PROPOFOL INJECTION 50 ML IV ONE (09:11)
--- NOTE | 2019-08-20 09:38 | Progress Note-Pre Operative ---
Pre-Operative Progress Note H&P Reviewed The H&P was reviewed, patient examined and no changes noted. Time Seen by Provider: 08:58 Date H&P Reviewed: Aug 20, 2019 Time H&P Reviewed: 08:59 Pre-Operative Diagnosis: Screening colonoscopy BRICE MOURA DO Aug 20, 2019 09:38
--- NOTE | 2019-08-20 09:39 | Progress Note-Post Operative ---
Post-Operative Progess Note Surgeon (s)/Semiconductor Wafers Tester (s) Surgeon BRICE MOURA DO Semiconductor Wafers Tester: JOSELITO Flores Pre-Operative Diagnosis Screening colonoscopy Post-Operative Diagnosis Diverticula Internal Hemorrhoids Procedure & Operative Findings Date of Procedure 08/20/19 Procedure Performed/Findings colonoscopy Anesthesia Type IV sedation by PLATING MACHINE OPERATOR Estimated Blood Loss Estimated blood loss (mL): none Specimens/Packing Specimens Removed none BRICE MOURA DO Aug 20, 2019 09:39
[2019-08-20 09:40] VITALS: BP 124/69
--- NOTE | 2019-08-20 09:42 | Endoscopy Discharge Instruct ---
Endo Procedure/Findings Findings 1.: Diverticulosis 2.: Internal Hemorrhoids Discharge Instructions - Activity: You might feel a little sleepy until tomorrow. This is due to the medicine you received to relax you. Until tomorrow, you should: NOT drive a car, operate machinery or power tools. NOT drink any alcoholic beverages. NOT make any important decisions or sign importortant papers. Do not return to work until tomorrow, unless otherwise instructed. Resume previous activities tomorrow. Diet: Start by taking liquids. If you tolerate liquids, advance to solid food. make an appointment in one week. 1.: Colonscopy in 10 years Notify Physician - If you experience excessive bleeding, unusual abdominal pain, fever, or chest pain, contact your doctor immediately. BRICE MOURA DO Aug 20, 2019 09:42
[2019-08-20 09:45] VITALS: BP 127/75
[2019-08-20 09:50] VITALS: BP_SYST 135; BP_SYST 137; BP_DIAS 78
[2019-08-20 10:13] VITALS: BP 135/81
[2019-08-20 10:16] VITALS: BP 135/81
--- NOTE | 2019-08-20 11:11 | OPERATIVE REPORT ---
DATE OF SERVICE: PREOPERATIVE DIAGNOSIS: Screening colonoscopy. POSTOPERATIVE DIAGNOSES: 1. Diverticula. 2. Internal hemorrhoids. PROCEDURE: Colonoscopy. SURGEON: Renan Edward DO. AUTOMOTIVE REFINISHER: STACY Flores. ANESTHESIA: IV sedation by the BEHAVIORAL GENETICIST. SPECIMENS: None. BLOOD LOSS: None. FLUIDS: Per anesthesia. POSTOPERATIVE CONDITION: Stable. INDICATION FOR PROCEDURE: The patient is a 54-year-old female, who has never had a colonoscopy, needed one for screening. FINDINGS: The patient had some diverticula and internal hemorrhoids. No other obvious pathology. PROCEDURE NOTE: After informed consent was obtained, the patient was brought to the endoscopy suite and placed in bed in the left lateral decubitus position. She was administered IV sedation by the BEHAVIORAL GENETICIST who then monitored her vitals the entire time, heart rate, blood pressure and pulse ox and the scope was inserted, pushed all the way to [address] in, noted some diverticula, took a picture of this and able to get all the way to cecum, took a picture of appendiceal orifice, noted the ileocecal valve and then slowly withdrew the scope, insufflating to look circumferentially at the jack looking the cecum, up the ascending colon to the hepatic flexure, then down the transverse colon to the splenic flexure, into the descending colon then down the sigmoid and then down in the rectum, retroflexed in rectal vault, saw some minimal internal hemorrhoids. No other obvious pathology. Scope was removed. The patient tolerated the procedure, recovered in endoscopy suite. Job ID: [id number] DocumentID: [id number] Dictated Date: 08/20/2019 09:42:33 Multi Share Program Coordinator Date: 08/20/2019 11:10:21 Dictated By: RENAN EDWARD DO
--- NOTE | 2019-08-20 15:10 | Anesthesia-General Post-Op ---
MAC Patient Condition Mental Status/LOC: Same as Preop Cardiovascular: Satisfactory Nausea/Vomiting: Absent Respiratory: Satisfactory Pain: Controlled Complications: Absent Post Op Complications Complications None Follow Up Care/Instructions Patient Instructions None needed. Anesthesiology Discharge Order Discharge Order Patient is doing well, no complaints, stable vital signs, no apparent adverse anesthesia problems. No complications reported per nursing. MAILE SALINAS CRNA Aug 20, 2019 15:10 POS
== END 2019-08-20 10:15 | disposition home or self-care (01) ==
LOC: ENDO 08:09
PROVIDERS: ATTEND Surgery
DX: Z12.11 Encounter for screening for malignant neoplasm of colon (principal); K57.30 Diverticulosis of large intestine without perforation or abscess without bleeding; K64.8 Other hemorrhoids; Z79.891 Long term (current) use of opiate analgesic; Z79.899 Other long term (current) drug therapy; Z80.1 Family history of malignant neoplasm of trachea, bronchus and lung; Z83.6 Family history of other diseases of the respiratory system

== ENCOUNTER 2021-07-12 07:24 | Emergency (ER) | payer BC ==
[~2021-07-12] VITALS: Ht 162 cm; Wt 102.0 kg
[~2021-07-12 07:24] MED LIST changes: -LISI-552 PO; +LISI20TA26 PO; -OXYC-465 PO; +OXYC-556 PO
[2021-07-12 07:30] VITALS: BP 117/95
--- NOTE | 2021-07-12 07:44 | ED GU-Female ---
General Chief Complaint: - Reproductive Stated Complaint: FREQUENT URINATION,NAUSEA Nursing Triage Note: STATES SHE WOKE UP THIS AM UNABLE TO URINATE. ALSO HAVING RIGHT SIDED PAIN. Source: patient Exam Limitations: no limitations History of Present Illness Date Seen by Provider: Jul 12, 2021 Time Seen by Provider: 07:31 Initial Comments Patient is a 56-year-old female who presents to the emergency department today with a chief complaint of right flank and right lower quadrant abdominal discomfort. Onset about 330 this morning. Associated with nausea and vomiting x3. Patient endorses dysuria, frequency. She has had 1 previous experience with bladder infection. Denies any known hematuria. No diarrhea, black or bloody stools. Complains of chills without fever. No history of kidney stone. Multiple previous abdominal surgeries. All other review of systems reviewed and negative except as stated. Timing/Duration: just prior to arrival ( 3:30 AM) Severity/Quality: moderate Location: RLQ Associated Symptoms: fever/chills (Chills without), nausea/vomiting Allergies and Home Medications Allergies Uncoded Allergies: steri strips (Allergy, Intermediate, rash, 04/01/17) Patient Home Medication List Home Medication List Reviewed: Yes Estradiol (Estradiol Tablet) 1 Mg Tablet, PO DAILY, (Reported) Entered as Reported by: REID PEDROZA on 03/25/17 1344 Lisinopril (Lisinopril) 20 Mg Tablet, 20 MG PO DAILY, (Reported) Entered as Reported by: REID PEDROZA on 08/13/19 1400 Naproxen Sodium (Anaprox Ds) 550 Mg Tablet, 550 MG PO BID PRN for PAIN-MILD, (Reported) Entered as Reported by: REID PEDROZA on 08/13/19 1400 Review of Systems Review of Systems Constitutional: see HPI EENTM: no symptoms reported Respiratory: no symptoms reported Cardiovascular: no symptoms reported Gastrointestinal: abdominal pain (RLQ), nausea, vomiting Genitourinary: dysuria, flank pain, pain, urgency : No Musculoskeletal: no symptoms reported Skin: no symptoms reported All Other Systemes Reviewed Negative Unless Noted: Yes Past Kertggo-Xnnjsh-Ahkpyx Hx Patient Social History Tobacco Use?: Yes Smoking Status: Current Everyday Smoker Substance use?: No Alcohol Use?: No Seasonal Allergies Seasonal Allergies: Yes (MILD) Past Medical History Surgeries: Yes (hand surgery status post degloving injury X 12) Bladder Surgery, Gallbladder, Hysterectomy, Tubal Ligation Respiratory: No Cardiac: Yes Hypertension Neurological: No 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) Female Reproductive Disorders: Denies ADJUNCT TRAINER History: Hysterectomy, Menopausal Sexually Transmitted Disease: No HIV/AIDS: No Genitourinary: No Gastrointestinal: Yes Diverticulosis Musculoskeletal: Yes Arthritis, Chronic Back Pain Endocrine: No HEENT: Yes (READING GLASSES, DENTURES) Loss of Vision: Denies Hearing Impairment: Denies Cancer: No Psychosocial: No Integumentary: No Blood Disorders: No Adverse Reaction/Blood Tranf: No (N/A) Family Medical History Cancer, COPD, Other Conditions/Hx Physical Exam Vital Signs Vital Signs - First Documented 07/12/21 07:30 Temp 35.7 Pulse 74 Resp 16 B/P (MAP) 117/95 (102) Pulse Ox 98 O2 Delivery Room Air Capillary Refill : Less Than 3 Seconds Height, Weight, BMI Height: 5'4.00" Weight: 232lbs. 7.0oz. 105.067729bl; 38.00 BMI Method:Stated General Appearance: WD/WN, no apparent distress HEENT: PERRL/EOMI Cardiovascular: regular rate, rhythm Respiratory: lungs clear, normal breath sounds, no respiratory distress, no accessory muscle use Gastrointestinal: normal bowel sounds, non tender, soft Extremities: normal range of motion, normal inspection Neurologic/Psychiatric: alert, normal mood/affect, oriented x 3 Skin: normal color, warm/dry Progress/Results/Core Measures Suspected Sepsis SIRS Temperature: Pulse: 74 Respiratory Rate: 16 Blood Pressure 117 /95 Mean: 102 Laboratory Tests 07/12/21 08:30: Creatinine 0.83 Results/Orders Lab Results Laboratory Tests Test 07/12/21 07:47 07/12/21 08:30 Range/Units Urine Color ASHER H Urine Clarity CLOUDY Urine pH 5.5 5-9 Urine Specific [place] >=1.030 1.016-1.022 Urine Protein 1+ H NEGATIVE Urine Glucose (UA) NEGATIVE NEGATIVE Urine Ketones NEGATIVE NEGATIVE Urine Nitrite NEGATIVE NEGATIVE Urine Bilirubin 1+ H NEGATIVE Urine Urobilinogen 2.0 < = 1.0 MG/DL Urine Leukocyte Esterase NEGATIVE NEGATIVE Urine RBC (Auto) 3+ H NEGATIVE Urine RBC 25-50 H /HPF Urine WBC 2-5 /HPF Urine Squamous Epithelial Cells 2-5 /HPF Urine Crystals NONE /LPF Urine Bacteria MODERATE H /HPF Urine Casts NONE /LPF Urine Mucus NEGATIVE /LPF Urine Culture Indicated YES Sodium Level 142 135-145 MMOL/L Potassium Level 4.5 3.6-5.0 MMOL/L Chloride Level 106 98-107 MMOL/L Carbon Dioxide Level 25 21-32 MMOL/L Anion Gap 11 5-14 MMOL/L Blood Urea Nitrogen 15 7-18 MG/DL Creatinine 0.83 0.60-1.30 MG/DL Estimat Glomerular Filtration Rate 71 BUN/Creatinine Ratio 18 Glucose Level 153 H 70-105 MG/DL Calcium Level 9.5 8.5-10.1 MG/DL My Orders Orders - SUSI ARMENTA MD Ua Culture If Indicated (07/12/21 07:58) Urine Culture (07/12/21 07:47) Ed Iv/Invasive Line Start (07/12/21 08:21) Basic Metabolic Panel (07/12/21 08:21) Abdomen/Kub 1view (07/12/21 08:21) Ct Abdomen/Pelvis Wo (07/12/21 08:21) Ketorolac Injection (Toradol Injection) (07/12/21 09:00) Ns Iv 1000 Ml (Sodium Chloride 0.9%) (07/12/21 09:00) Medications Given in ED Current Medications Medications Dose Ordered Sig/Crystal Route Start Time Stop Time Status Last Admin Dose Admin Ketorolac Tromethamine 15 mg ONCE ONCE IVP 07/12/21 09:00 07/12/21 09:01 DC 07/12/21 09:13 15 MG Vital Signs/I&O 07/12/21 07:30 Temp 35.7 Pulse 74 Resp 16 B/P (MAP) 117/95 (102) Pulse Ox 98 O2 Delivery Room Air Capillary Refill : Less Than 3 Seconds Blood Pressure Mean: 102 Progress Note : Time: 09:28 Progress Note Patient feels better after IV toradol. Getting a liter of fluids now. Has a distal right ureteral stone of 4mm. No evidence of UTI associated, although moderate bacteria in the urine. Urine will culture. In light of the patient not having fever, will monitor this and follow up on urine culture results. Patient will be sent home with pain meds, flomax and nausea medications. encouraged to push fluids. strain urine. return precautions given, such as intolerable pain with vomiting, fever, etc. SHe is comfortable with this plan of care. ag reeable. No acute distress at the moment. Will finish up fluids and get her home to follow up with primary care. Diagnostic Imaging Diagonstic Imaging: Xray, CT Comments [facility]. [place], [place] NAME: COURTNEY KAY [facility] REC#: [id number] PT STATUS: REG ER : 1965 PHYSICIAN: SUSI ARMENTA MD ADMIT DATE: 07/12/21/ER Draft Date of Exam:07/12/21 ABDOMEN/KUB 1VIEW Clinical indication: Patient with hematuria and right flank pain. Exam: KUB x-ray. Comparison: CT scan of the abdomen and pelvis without contrast dated 06/17/2019. Findings: There are multiple phleboliths seen in the pelvis. There is a calcification overlying the lower right sacral region measuring roughly 4 mm. There is no prior study to show the chronicity of this finding. There are no stones overlying the expected region of the kidneys. There is small to moderate amount of stool throughout the colon. There is no intestinal obstruction. There are degenerative spurs involving the spine. IMPRESSION: 1: There is multiple phleboliths seen in the pelvis. There is a 4 mm calcification overlying the right lower sacral region. Unknown if this represents a phlebolith or stone in the right ureter. CT scan would better evaluate. Dictated on workstation # [id number] Dict: 07/12/21901 Trans: 07/12/21 0908 JESSICA [id number] Interpreted by: ELGIN ALLEN MD Electronically signed by: [facility], [facility]. [place], [place] NAME: COURTNEY KAY [facility] REC#: [id number] PT STATUS: REG ER : 1965 PHYSICIAN: SUSI ARMENTA MD ADMIT DATE: 07/12/21/ER Draft Date of Exam:07/12/21 CT ABDOMEN/PELVIS WO Clinical indication: Patient with right flank pain for a while which is worse today. Patient has microhematuria. Patient has no history of stones. Exam: CT exam of the abdomen and pelvis is performed without IV or oral contrast using stone protocol. Coronal and sagittal reformatted images were created. Auto Exposure Controls were utilized during the CT exam to meet ALARA standards for radiation dose reduction. Comparisons: CT scan of the abdomen and pelvis without contrast dated 06/17/2019. Findings: The visualized lung bases are clear. There is enthesopathy involving the bilateral greater trochanters and ischium. There are hypertrophic spurs involving the acetabular regions. There is lower lumbar spine facet arthropathy. There are degenerative spurs involving the visualized lower thoracic spine and lumbar spine. The gallbladder is surgically absent, as noted on the prior study. The liver, spleen, pancreas, and adrenal glands are unremarkable. There is interval development of a 4 mm calcification which is in the region of the distal right ureter/right UVJ. There is interval prominence of the right renal pelvis with no significant hydronephrosis. There is a stable focal calcification seen posterior to the proximal right ureter likely representing vascular calcification. Left kidney shows no significant abnormality. There is no intra-abdominal free air or free fluid. There is no lymphadenopathy. The stomach, small bowel, and colon show no significant abnormality. There is diverticulosis involving the sigmoid colon and descending colon with no diverticulitis. There is small to moderate amount of stool throughout the colon. The appendix is unremarkable. There are multiple phleboliths seen in the pelvis. The extra-abdominal and extrapelvic soft tissue structures are unremarkable. IMPRESSION: 1: There is interval development of a 4 mm stone within the distal right ureter/UVJ region. There is minimal prominence of the right renal collecting system with no significant hydronephrosis. 2: The remainder of this exam shows no significant interval change compared to the prior study of comparison. Dictated on workstation # [id number] Dict: 07/12/21 0857 Trans: 07/12/21 0911 JESSICA [id number] Interpreted by: ELGIN ALLEN MD Electronically signed by: Departure Impression Primary Impression: Kidney stone on right side Disposition: 01 HOME, SELF-CARE Condition: Improved Departure-Patient Inst. Decision time for Depature: 09:31 Referrals: [facility] (PCP/Family) Primary Care Physician Patient Instructions: Kidney Stones (DC) Add. Discharge Instructions: Push fluids so that you stay well-hydrated. Use the urine strainer every time you go to the bathroom to monitor when you have passed the stone. You can take [id number] ibuprofen, 3 tablets which is 600 mg every 6-8 hours with food as necessary for pain. I have also given you a prescription for hydrocodone, this is a stronger pain medication, may make you sleepy. You can take this every 6 hours as needed for worse pain. Nausea medications, Zofran every 8 hours as needed for nausea. Please take the Flomax 0.4 mg daily to help increase urinary flow. Return to the emergency room for any worsening pain especially with vomiting, inability to hold down your medications, fever over 100.4 or any other emergent concerning symptoms. Follow-up with your primary care provider. Scripts Hydrocodone/Acetaminophen (Hydrocodone-Acetamin 5-325 mg) 1 Each Tablet 1 TAB PO Q6H PRN for PAIN-MODERATE (5-7), #12 TAB Prov: SUSI ARMENTA MD 07/12/21 Ondansetron (Ondansetron Odt) 4 Mg Tab.rapdis 4 MG PO Q8H PRN for nausea, #15 TAB Prov: SUSI ARMENTA MD 07/12/21 Tamsulosin HCl (Flomax) 0.4 Mg Cap 0.4 MG PO DAILY for 14 Days, #14 CAP Prov: SUSI ARMENTA MD 07/12/21 Copy Copies To 1: JOSE MIGUEL SINGH KATHRYN M MD Jul 12, 2021 07:44
[2021-07-12 08:03] LABS: CLARITY,URINE CLOUDY; COLOR,URINE AMBER; GLUCOSE, URINE (UA) NEGATIVE (NEGATIVE); KETONES,URINE NEGATIVE (NEGATIVE); LEUKOCYTE ESTERASE ,URINE NEGATIVE (NEGATIVE); NITRITE,URINE NEGATIVE (NEGATIVE); PH,URINE 5.5 (5-9); PROTEIN,URINE 1+ (NEGATIVE)
[2021-07-12 08:16] LABS: BILIRUBIN,URINE 1+ (NEGATIVE)
[2021-07-12 08:19] LABS: BACTERIA,URINE MODERATE /HPF; RBC,URINE 25-50 /HPF
[2021-07-12 08:45] LABS: POTASSIUM 4.5 MMOL/L (3.6-5.0)
[2021-07-12 08:46] LABS: CALCIUM 9.5 MG/DL (8.5-10.1)
[2021-07-12 08:51] LABS: CREATININE SERUM 0.83 MG/DL (0.60-1.30)
[2021-07-12] MEDS ORDERED: NS IV 1000 ML 1,000 ML IV SCH (09:00)
[2021-07-12] MEDS ORDERED: KETOROLAC 30 MG/ML VIAL IVP ONE (09:00)
--- NOTE | 2021-07-12 09:08 | Diagnostic Imaging Report ---
Clinical indication: Patient with hematuria and right flank pain. Exam: KUB x-ray. Comparison: CT scan of the abdomen and pelvis without contrast dated 06/17/2019. Findings: There are multiple phleboliths seen in the pelvis. There is a calcification overlying the lower right sacral region measuring roughly 4 mm. There is no prior study to show the chronicity of this finding. There are no stones overlying the expected region of the kidneys. There is small to moderate amount of stool throughout the colon. There is no intestinal obstruction. There are degenerative spurs involving the spine. IMPRESSION: 1: There is multiple phleboliths seen in the pelvis. There is a 4 mm calcification overlying the right lower sacral region. Unknown if this represents a phlebolith or stone in the right ureter. CT scan would better evaluate. Dictated by: Dictated on workstation # [id number]
--- NOTE | 2021-07-12 09:12 | Diagnostic Imaging Report ---
Clinical indication: Patient with right flank pain for a while which is worse today. Patient has microhematuria. Patient has no history of stones. Exam: CT exam of the abdomen and pelvis is performed without IV or oral contrast using stone protocol. Coronal and sagittal reformatted images were created. Auto Exposure Controls were utilized during the CT exam to meet ALARA standards for radiation dose reduction. Comparisons: CT scan of the abdomen and pelvis without contrast dated 06/17/2019. Findings: The visualized lung bases are clear. There is enthesopathy involving the bilateral greater trochanters and ischium. There are hypertrophic spurs involving the acetabular regions. There is lower lumbar spine facet arthropathy. There are degenerative spurs involving the visualized lower thoracic spine and lumbar spine. The gallbladder is surgically absent, as noted on the prior study. The liver, spleen, pancreas, and adrenal glands are unremarkable. There is interval development of a 4 mm calcification which is in the region of the distal right ureter/right UVJ. There is interval prominence of the right renal pelvis with no significant hydronephrosis. There is a stable focal calcification seen posterior to the proximal right ureter likely representing vascular calcification. Left kidney shows no significant abnormality. There is no intra-abdominal free air or free fluid. There is no lymphadenopathy. The stomach, small bowel, and colon show no significant abnormality. There is diverticulosis involving the sigmoid colon and descending colon with no diverticulitis. There is small to moderate amount of stool throughout the colon. The appendix is unremarkable. There are multiple phleboliths seen in the pelvis. The extra-abdominal and extrapelvic soft tissue structures are unremarkable. IMPRESSION: 1: There is interval development of a 4 mm stone within the distal right ureter/UVJ region. There is minimal prominence of the right renal collecting system with no significant hydronephrosis. 2: The remainder of this exam shows no significant interval change compared to the prior study of comparison. Dictated by: Dictated on workstation # [id number]
[2021-07-12] MEDS ORDERED: ACHD5005 PO (09:32)
[2021-07-12] MEDS ORDERED: ONDA4TAB11 PO (09:32)
[2021-07-12] MEDS ORDERED: TMSL.4C PO (09:32)
== END 2021-07-12 10:08 | disposition home or self-care (01) ==
LOC: EDUNIT# 07:24 → ER 07:25
DX: N20.0 Calculus of kidney (principal); I10 Essential (primary) hypertension; F17.290 Nicotine dependence, other tobacco product, uncomplicated; Z79.899 Other long term (current) drug therapy
CPT/HCPCS: 36415; 74018; 74176; 80048; 81000; 87088

== ENCOUNTER 2021-07-29 10:26 | Inpatient (IN) | payer BC ==
[~2021-07-29] VITALS: Ht 162 cm; Wt 101.0 kg
[~2021-07-29 10:26] MED LIST changes: +ACHD5005 PO; +ONDA4TAB11 PO; +TMSL.4C PO
[2021-07-29] MEDS ORDERED: dilTIAZem DRIP PRE-MIX 125 ML IV ONE (10:53)
[2021-07-29] MEDS ORDERED: LACTATED RINGERS 1,000 ML IV ONE (10:53)
[2021-07-29 11:15] LABS: BASOPHILS % (AUTO) 0 % (0-10); EOSINOPHILS % (AUTO) 0 % (0-10); HEMATOCRIT 44 % (35-52); LYMPHOCYTES # (AUTO) 1.1 10^3/uL (1.0-4.0); LYMPHOCYTES % (AUTO) 20 % (12-44); MEAN CORPUSCULAR HEMOGLOBIN 27 pg (25-34); MEAN CORPUSCULAR HGB CONC 32 g/dL (32-36); MEAN CORPUSCULAR VOLUME 85 fL (80-99); MEAN PLATELET VOLUME 10.8 fL (9.0-12.2); MONOCYTES # (AUTO) 0.4 10^3/uL (0.0-1.0); MONOCYTES % (AUTO) 6 % (0-12); NEUTROPHILS # (AUTO) 4.1 10^3/uL (1.8-7.8); NEUTROPHILS % (AUTO) 73 % (42-75); PLATELET COUNT 179 10^3/uL (130-400); WHITE BLOOD COUNT 5.6 10^3/uL (4.3-11.0)
[2021-07-29] MEDS ORDERED: ACETAMINOPHEN 500 MG TAB (TYLENOL) ONE (11:23)
[2021-07-29] MEDS ORDERED: IBUPROFEN 800 MG (MOTRIN) TAB PO ONE (11:24)
--- NOTE | 2021-07-29 11:35 | ED General ---
General Chief Complaint: COVID19 Suspect/Confirmed Stated Complaint: COVID + FEVER Nursing Triage Note: PT TO ROOM 9 PT CO OF FEVERS AND TESTING COVID + LAST TUESDAY. UPON PLACING PT ON MONITOR HR 192 AFIB RVR NEW ONSET FOR PT Source of Information: Patient Exam Limitations: No Limitations History of Present Illness Date Seen by Provider: Jul 29, 2021 Time Seen by Provider: 11:30 Initial Comments To ER with reports of fevers and being Covid positive. This is day 8 of illness she became symptomatic last Tuesday. She tested positive last Tuesday at her place of employment, [employer], she was then referred to [facility] for confirmatory testing and was still positive. She is unvaccinated against Covid. [place] [facility] [place] been taking zinc as prescribed. Has had no antipyretics today. Does have a cough. Timing/Duration: 1 Week Severity: Moderate Associated Systoms: Cough, Fever/Chills Allergies and Home Medications Allergies Uncoded Allergies: steri strips (Allergy, Intermediate, rash, 04/01/17) Patient Home Medication List Home Medication List Reviewed: Yes Estradiol (Estradiol Tablet) 1 Mg Tablet, PO DAILY, (Reported) Entered as Reported by: REID PEDROZA on 03/25/17 1344 Hydrocodone/Acetaminophen (Hydrocodone-Acetamin 5-325 mg) 1 Each Tablet, 1 TAB PO Q6H PRN for PAIN-MODERATE (5-7) Prescribed by: SUSI ARMENTA on 07/12/21 0933 Lisinopril (Lisinopril) 20 Mg Tablet, 20 MG PO DAILY, (Reported) Entered as Reported by: REID PEDROZA on 08/13/19 1400 Naproxen Sodium (Anaprox Ds) 550 Mg Tablet, 550 MG PO BID PRN for PAIN-MILD, (Reported) Entered as Reported by: REID PEDROZA on 08/13/19 1400 Ondansetron (Ondansetron Odt) 4 Mg Tab.rapdis, 4 MG PO Q8H PRN for nausea Prescribed by: SUSI ARMENTA on 07/12/21 0932 Tamsulosin HCl (Flomax) 0.4 Mg Cap, 0.4 MG PO DAILY Prescribed by: SUSI ARMENTA on 07/12/21 0932 Review of Systems Review of Systems Constitutional: see HPI, chills, fever, malaise, weakness EENTM: see HPI Respiratory: no symptoms reported Cardiovascular: see HPI; No chest pain Genitourinary: no symptoms reported Musculoskeletal: no symptoms reported Skin: no symptoms reported Psychiatric/Neurological: No Symptoms Reported Hematologic/Lymphatic: No Symptoms Reported Past Napynje-Jtjdmr-Chrjna Hx Seasonal Allergies Seasonal Allergies: Yes (MILD) Past Medical History Surgeries: Yes (hand surgery status post degloving injury X 12) Bladder Surgery, Gallbladder, Hysterectomy, Tubal Ligation Respiratory: No Cardiac: Yes Hypertension Neurological: No 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) Female Reproductive Disorders: Denies CLOTH HAND History: Hysterectomy, Menopausal Sexually Transmitted Disease: No HIV/AIDS: No Genitourinary: No Gastrointestinal: Yes Diverticulosis Musculoskeletal: Yes Arthritis, Chronic Back Pain Endocrine: No HEENT: Yes (READING GLASSES, DENTURES) Loss of Vision: Denies Hearing Impairment: Denies Cancer: No Psychosocial: No Integumentary: No Blood Disorders: No Adverse Reaction/Blood Tranf: No (N/A) Family Medical History Cancer, COPD, Other Conditions/Hx Physical Exam Vital Signs Vital Signs - First Documented 07/29/21 10:45 Temp 39.1 Pulse 192 Resp 22 B/P (MAP) 90/62 (71) Pulse Ox 93 O2 Delivery Room Air Capillary Refill : Less Than 3 Seconds Height, Weight, BMI Height: 5'4.00" Weight: 232lbs. 7.0oz. 105.070379jz; 38.00 BMI Method:Stated General Appearance: No Apparent Distress, WD/WN, Other (Alert and oriented no distress. Mentating well. Blood pressure 97/50, heart rate 190 irregular. Oxygen saturation 93% on room air. Temperature 102.4.) HEENT: PERRL/EOMI, TMs Normal Neck: Full Range of Motion, Normal Inspection Respiratory: No Accessory Muscle Use, No Respiratory Distress Cardiovascular: Normal Peripheral Pulses, Irregularly Irregular Gastrointestinal: Normal Bowel Sounds, Non Tender, Soft Neurologic/Psychiatric: Alert, Oriented x3 Skin: Normal Color, Warm/Dry Progress/Results/Core Measures Suspected Sepsis SIRS Temperature: Pulse: 192 Respiratory Rate: 22 Laboratory Tests 07/29/21 11:00: White Blood Count 5.6 Blood Pressure 90 /62 Mean: 71 Laboratory Tests 07/29/21 11:00: Creatinine 0.96, Platelet Count 179, Total Bilirubin 0.5 Results/Orders Lab Results Laboratory Tests Test 07/29/21 11:00 07/29/21 11:42 Range/Units White Blood Count 5.6 4.3-11.0 10^3/uL Red Blood Count 5.16 H 3.80-5.11 10^6/uL Hemoglobin 14.0 11.5-16.0 g/dL Hematocrit 44 35-52 % Mean Corpuscular Volume 85 80-99 fL Mean Corpuscular Hemoglobin 27 25-34 pg Mean Corpuscular Hemoglobin Concent 32 32-36 g/dL Red Cell Distribution Width 14.6 H 10.0-14.5 % Platelet Count 179 130-400 10^3/uL Mean Platelet Volume 10.8 9.0-12.2 fL Immature Granulocyte % (Auto) 0 % Neutrophils (%) (Auto) 73 42-75 % Lymphocytes (%) (Auto) 20 12-44 % Monocytes (%) (Auto) 6 0-12 % Eosinophils (%) (Auto) 0 0-10 % Basophils (%) (Auto) 0 0-10 % Neutrophils # (Auto) 4.1 1.8-7.8 10^3/uL Lymphocytes # (Auto) 1.1 1.0-4.0 10^3/uL Monocytes # (Auto) 0.4 0.0-1.0 10^3/uL Eosinophils # (Auto) 0.0 0.0-0.3 10^3/uL Basophils # (Auto) 0.0 0.0-0.1 10^3/uL Immature Granulocyte # (Auto) 0.0 0.0-0.1 10^3/uL D-Dimer 0.76 H 0.00-0.49 UG/ML Sodium Level 141 135-145 MMOL/L Potassium Level 4.0 3.6-5.0 MMOL/L Chloride Level 104 98-107 MMOL/L Carbon Dioxide Level 26 21-32 MMOL/L Anion Gap 11 5-14 MMOL/L Blood Urea Nitrogen 19 H 7-18 MG/DL Creatinine 0.96 0.60-1.30 MG/DL Estimat Glomerular Filtration Rate 60 BUN/Creatinine Ratio 20 Glucose Level 111 H 70-105 MG/DL Calcium Level 9.2 8.5-10.1 MG/DL Corrected Calcium 9.4 8.5-10.1 MG/DL Magnesium Level 1.7 1.6-2.4 MG/DL Total Bilirubin 0.5 0.1-1.0 MG/DL Aspartate Amino Transf (AST/SGOT) 55 H 5-34 U/L Alanine Aminotransferase (ALT/SGPT) 56 H 0-55 U/L Alkaline Phosphatase 86 40-136 U/L Troponin I < 0.028 <0.028 NG/ML C-Reactive Protein High Sensitivity 1.89 H 0.00-0.50 MG/DL Total Protein 7.1 6.4-8.2 GM/DL Albumin 3.8 3.2-4.5 GM/DL Procalcitonin 0.05 <0.10 NG/ML My Orders Orders - ALEXIA CROSS APRN Cbc With Automated Diff (07/29/21 10:40) Comprehensive Metabolic Panel (07/29/21 10:40) Hs C Reactive Protein (07/29/21 10:40) Fibrin Degradation Products (07/29/21 10:40) Chest 1 View, Ap/Pa Only (07/29/21 10:40) Ed Iv/Invasive Line Start (07/29/21 10:40) Procalcitonin (Pct) (07/29/21 10:40) Diltiazem Drip Pre-Mix (Cardizem Drip Pr (07/29/21 10:53) Lactated Ringers (Lr 1000 Ml Iv Solution (07/29/21 10:53) Diltiazem Injection (Cardizem Injection) (07/29/21 10:54) Acetaminophen Tablet (Tylenol Tablet) (07/29/21 11:23) Ibuprofen Tablet (Motrin Tablet) (07/29/21 11:24) Apixaban Tablet (Eliquis Tablet) (07/29/21 11:45) Ua Culture If Indicated (07/29/21 12:07) Magnesium (07/29/21 12:17) Troponin I (07/29/21 12:17) Covid-19 External Lab Results (07/29/21 12:52) Ekg Tracing (07/29/21 12:54) Medications Given in ED Current Medications Medications Dose Ordered Sig/Crystal Route Start Time Stop Time Status Last Admin Dose Admin Acetaminophen 500 mg STK-MED ONCE .ROUTE 07/29/21 11:23 07/29/21 11:26 DC 07/29/21 11:30 1,000 MG Apixaban 5 mg ONCE ONCE PO 07/29/21 11:45 07/29/21 11:46 DC 07/29/21 12:15 5 MG Diltiazem HCl 25 mg STK-MED ONCE .ROUTE 07/29/21 10:54 07/29/21 10:56 DC 07/29/21 11:07 5 MG Diltiazem HCl 125 ml @ ud STK-MED ONCE IV 07/29/21 10:53 07/29/21 10:56 DC 07/29/21 11:07 5 MLS/HR Ibuprofen 800 mg STK-MED ONCE PO 07/29/21 11:24 07/29/21 11:26 DC 07/29/21 11:30 800 MG Lactated Ringer's 1,000 ml @ ud STK-MED ONCE IV 07/29/21 10:53 07/29/21 10:56 DC 07/29/21 11:08 1,000 MLS/HR Vital Signs/I&O 07/29/21 10:45 Temp 39.1 Pulse 192 Resp 22 B/P (MAP) 90/62 (71) Pulse Ox 93 O2 Delivery Room Air Capillary Refill : Less Than 3 Seconds Blood Pressure Mean: 71 Departure Communication (Admissions) 1286-she is interested in receiving Regeneron. She would qualify for this because she is being admitted for atrial fibrillation not for Covid related complaint. Of she is not requiring supplemental oxygen. She is 93% on room air. Procalcitonin and inflammatory markers are negligible. I discussed with her the emergency use authorization of Regeneron as well as the alternatives to use. She would like to proceed with receiving this. Family Conversation NAME: COURTNEY KAY MED REC#: [id number] PT STATUS: REG ER : 1965 PHYSICIAN: ALEXIA CROSS APRN ADMIT DATE: 07/29/21/ER Draft Date of Exam:07/29/21 CHEST 1 VIEW, AP/PA ONLY INDICATION: Fever, shortness of breath COMPARISON: 08/20/2013 FINDINGS: Single view the chest demonstrate mild bilateral pulmonary infiltrates. Heart is normal. There is no pneumothorax or effusion. Osseous structures normal. IMPRESSION: Mild bilateral pulmonary infiltrates. Dictated on workstation # [id number] Dict: 07/29/21 1159 Trans: 07/29/21 1200 [facility] [id number] Interpreted by: DEACON IRWIN Electronically signed by: On arrival temperature 102.4. Given Tylenol and Motrin to control fever which will also help slow the atrial fibrillation rate. IV access established x2. No history of atrial fibrillation though she is asymptomatic with it, denies palpitations or chest pain and is unsure when it may have started. She intermittently converts between sinus tach at 130 and atrial fibrillation with rapid ventricular response. 1 L of LR infusing, Cardizem 5 mg bolus and 10 mg an hour. We will also give Eliquis given the unknown onset of this. Impression Primary Impression: Atrial fibrillation with RVR Additional Impression: COVID-19 Disposition: ADMITTED INPATIENT Condition: Stable Admissions Decision to Admit Reason: Admit from ER (General) Decision to Admit/Date: Jul 29, 2021 Time/Decision to Admit Time: 12:55 Departure-Patient Inst. Referrals: RADHA WOO MD (PCP/Family) Primary Care Physician ALEXIA CROSS APRN Jul 29, 2021 11:35
[2021-07-29 11:38] LABS: ALBUMIN 3.8 GM/DL (3.2-4.5)
[2021-07-29 11:40] LABS: CALCIUM 9.2 MG/DL (8.5-10.1)
[2021-07-29 11:41] LABS: TOTAL PROTEIN 7.1 GM/DL (6.4-8.2)
[2021-07-29 11:43] LABS: BILIRUBIN,TOTAL 0.5 MG/DL (0.1-1.0)
[2021-07-29 11:45] LABS: CREATININE SERUM 0.96 MG/DL (0.60-1.30)
[2021-07-29] MEDS ORDERED: APIXABAN 5 MG (ELIQUIS) TABLET PO ONE (11:45)
--- NOTE | 2021-07-29 12:01 | Diagnostic Imaging Report ---
INDICATION: Fever, shortness of breath COMPARISON: 08/20/2013 FINDINGS: Single view the chest demonstrate mild bilateral pulmonary infiltrates. Heart is normal. There is no pneumothorax or effusion. Osseous structures normal. IMPRESSION: Mild bilateral pulmonary infiltrates. Dictated by: Dictated on workstation # [id number]
[2021-07-29 12:37] LABS: MAGNESIUM 1.7 MG/DL (1.6-2.4)
[2021-07-29 12:47] LABS: CLARITY,URINE CLEAR; COLOR,URINE YELLOW; GLUCOSE, URINE (UA) NEGATIVE (NEGATIVE); KETONES,URINE NEGATIVE (NEGATIVE); LEUKOCYTE ESTERASE ,URINE NEGATIVE (NEGATIVE); NITRITE,URINE NEGATIVE (NEGATIVE); PROTEIN,URINE 2+ (NEGATIVE)
[2021-07-29] MEDS ORDERED: CASIRIVIMAB/IMDEVIMAB 1,200 MG in NS (IVPB) 250 ML IV ONE (13:00)
[2021-07-29] MEDS ORDERED: ONDANSETRON 4 MG/2 ML (SDV) Z0FRAN IV PRN ×2 (13:00→14:45)
[2021-07-29] MEDS ORDERED: ACETAMINOPHEN 500 MG TAB (TYLENOL) PO PRN (13:00)
[2021-07-29] MEDS ORDERED: EPINEPHrine INJECTION 1 MG/ML AMP IM PRN (13:00)
[2021-07-29] MEDS ORDERED: diphenhydrAMINE 50 MG/ML INJ (BENADRYL) IV PRN (13:00)
[2021-07-29 13:09] LABS: BACTERIA,URINE TRACE /HPF; BILIRUBIN,URINE 1+ (NEGATIVE); CALCIUM OXALATE CRYSTALS,UR MODERATE /LPF; RBC,URINE 0-2 /HPF; SQUAMOUS EPITHELIAL CELL,UR 0-2 /HPF; WBC,URINE 0-2 /HPF
[2021-07-29 13:10] LABS: HYALINE CASTS, URINE 0-2 /LPF
--- NOTE | 2021-07-29 13:37 | Tele-ICU Consult ---
History of Present Illness History of Present Illness Date Seen by Provider: Jul 29, 2021 Time Seen by Provider: 13:35 Date of Admission 56 yo F with SOB, cough, COVID +, Sx for 8 days, started on Regeneron, CXR shows pankaj infiltrates Also in a fib, stated on IV Cardizem, apixiban d dimer 0.76 SpO2 93% on RA Allergies and Home Medications Allergies Uncoded Allergies: steri strips (Allergy, Intermediate, rash, 04/01/17) Home Medications Estradiol 1 Mg Tablet, PO DAILY, (Reported) Hydrocodone/Acetaminophen 1 Each Tablet, 1 TAB PO Q6H PRN for PAIN-MODERATE (5- 7) Prescribed by: SUSI ARMENTA on 07/12/21 0933 Lisinopril 20 Mg Tablet, 20 MG PO DAILY, (Reported) Naproxen Sodium 550 Mg Tablet, 550 MG PO BID PRN for PAIN-MILD, (Reported) Ondansetron 4 Mg Tab.rapdis, 4 MG PO Q8H PRN for nausea Prescribed by: SUSI ARMENTA on 07/12/21 0932 Tamsulosin HCl 0.4 Mg Cap, 0.4 MG PO DAILY Prescribed by: SUSI ARMENTA on 07/12/21 0932 Past Medical/Social/Family Hx Patient Social History Tobacco Use?: No Substance use?: No Alcohol Use?: No Immunizations Up To Date Date of Pneumonia Vaccine: Aug 01, 2017 Current Status Advance Directives: No Communicates: Verbally Primary Language: Israeli Preferred Spoken Language: Israeli Is interpretation needed?: No Review of Systems Constitutional: see HPI EENTM: see HPI Respiratory: see HPI Cardiovascular: see HPI Gastrointestinal: see HPI Genitourinary: see HPI Musculoskeletal: see HPI Skin: see HPI Psychiatric/Neurological: See HPI Sepsis Event Evaluation Height, Weight, BMI Height: 5'4.00" Weight: 232lbs. 7.0oz. 105.076424rh; 38.00 BMI Method:Stated Exam Exam Patient acknowledged, consented, and participated in this virtual visit which was conducted using real time audio/video Vital Signs Date Time Temp Pulse Resp B/P (MAP) Pulse Ox O2 Delivery O2 Flow Rate FiO2 07/29/21 10:45 39.1 192 22 90/62 (71) 93 Room Air Height & Weight Height: 5'4.00" Weight: 232lbs. 7.0oz. 105.360917td; 38.00 BMI Method:Stated General Appearance: No Apparent Distress, WD/WN, Mild Distress, Other (Alert and oriented no distress. Mentating well. Blood pressure 97/50, heart rate 190 irregular. Oxygen saturation 93% on room air. Temperature 102.4.) HEENT: PERRL/EOMI, TMs Normal Neck: Full Range of Motion, Normal Inspection Respiratory: No Accessory Muscle Use, No Respiratory Distress Cardiovascular: Normal Peripheral Pulses, Irregularly Irregular Capillary Refill: Less Than 3 Seconds Gastrointestinal: normal bowel sounds, non tender Neurologic/Psychiatric: Alert, Oriented x3 Skin: Normal Color, Warm/Dry Results Lab Laboratory Tests 07/29/21 11:00 Assessment/Plan Assessment/Plan Covid, has had for one week, will continue above meds and monitor oxygenation Critical Care: Critically Ill Patient JASPREET SALAZAR MD Jul 29, 2021 13:37
[2021-07-29] MEDS ORDERED: ONDANSETRON 4 MG/2 ML (SDV) Z0FRAN IVP PRN (14:00)
[2021-07-29] MEDS: dilTIAZem DRIP PRE-MIX 125 ML IV SCH (14:30)
[2021-07-29] MEDS ORDERED: IBUPROFEN 600 MG (MOTRIN) TAB PO PRN (14:45)
--- NOTE | 2021-07-29 15:40 | History & Physical-Hospitalist ---
History of Present Illness HPI/Chief Complaint Patient is a 56-year-old female who presented to the emergency department due to fever with known Covid positive status. She states that her symptoms started on July 21 and she tested positive on July 22. She has been managing at home but today checked her temperature and said it was 105 so called her primary care's office who recommended evaluation in the emergency department. On arrival to the ER she was found to have a heart rate of 192 and be in new onset A. fib with RVR. She has not been hypoxic. She has had loss of taste and smell though. She was admitted to the ICU on a Cardizem drip. Source: patient Exam Limitations: no limitations Date Seen 07/29/21 Time Seen by a Provider: 15:39 Attending Physician Constantin Wise MD PCP Nahomy Woo MD Referring Physician Date of Admission Jul 29, 2021 at 12:16 Home Medications & Allergies Home Medications Reviewed patient Home Medication Reconciliation performed by pharmacy medication reconciliations substation maintenance technician and/or nursing. Patients Allergies have been reviewed. Allergies Allergies Uncoded Allergies steri strips ( Allergy, Intermediate, rash, 04/01/17) Past Avjdgko-Mtjstc-Trkksa Hx Patient Social History Employed/Student: employed Tobacco Use?: No Smoking Status: Former Smoker Use of E-Cig and/or Vaping dev: No Substance use?: No Alcohol Use?: No Pt feels they are or have been: No Immunizations Up To Date Date of Pneumonia Vaccine: Aug 01, 2017 Seasonal Allergies Seasonal Allergies: Yes (MILD) Current Status Advance Directives: No Communicates: Verbally Primary Language: Senegalese Preferred Spoken Language: Senegalese Is interpretation needed?: No Past Medical History Surgeries: Bladder Surgery, Gallbladder, Hysterectomy, Tubal Ligation Hypertension [employer] History: Hysterectomy, Menopausal Sexually Transmitted Disease: No HIV/AIDS: No Diverticulosis Arthritis, Chronic Back Pain Loss of Vision: Denies Hearing Impairment: Denies Blood Disorders: No Adverse Reaction/Blood Tranf: No (N/A) Family Medical History Reviewed Nursing Family Hx Cancer, COPD, Other Conditions/Hx Review of Systems Constitutional: chills, fever, weakness EENTM: no symptoms reported Respiratory: cough Cardiovascular: see HPI Gastrointestinal: loss of appetite (and taste and smell) Genitourinary: no symptoms reported Musculoskeletal: no symptoms reported Skin: no symptoms reported Psychiatric/Neurological: No Symptoms Reported Physical Exam Physical Exam Vital Signs Vital Signs - First Documented 07/29/21 10:45 Temp 39.1 Pulse 192 Resp 22 B/P (MAP) 90/62 (71) Pulse Ox 93 O2 Delivery Room Air Capillary Refill : Less Than 3 Seconds Height, Weight, BMI Height: 5'4.00" Weight: 232lbs. 7.0oz. 105.230294po; 38.48 BMI Method:Stated General Appearance: No Apparent Distress, WD/WN HEENT: PERRL/EOMI, Moist Mucous Membranes; No Scleral Icterus (L), No Scleral Icterus (R) Neck: Normal Inspection, Supple Respiratory: Lungs Clear, No Accessory Muscle Use, No Respiratory Distress Cardiovascular: No Murmur, Irregularly Irregular, Tachycardia Gastrointestinal: Normal Bowel Sounds, Non Tender, Soft Extremity: No Calf Tenderness, No Pedal Edema, Other (deformity of left hand) Neurologic/Psychiatric: Alert, Oriented x3, Normal Mood/Affect Results Results/Procedures Labs Laboratory Tests 07/29/21 11:00 Patient resulted labs reviewed. Imaging: Reviewed Imaging Report Imaging [facility] [place] NAME: COURTNEY KAY [facility] REC#: [id number] PT STATUS: ADM IN : 1965 PHYSICIAN: ALEXIA CROSS APRN ADMIT DATE: 07/29/21/ICU Signed Date of Exam:07/29/21 CHEST 1 VIEW, AP/PA ONLY INDICATION: Fever, shortness of breath COMPARISON: 08/20/2013 FINDINGS: Single view the chest demonstrate mild bilateral pulmonary infiltrates. Heart is normal. There is no pneumothorax or effusion. Osseous structures normal. IMPRESSION: Mild bilateral pulmonary infiltrates. Dictated by: Dictated on workstation # [id number] Dict: 07/29/21 1159 Trans: 07/29/21 1511 [facility] [id number] Interpreted by: DEACON IRWIN Electronically signed by: DEACON IRWIN 07/29/21 1518 Assessment/Plan Admission Diagnosis a-fib with RVR Admission Status: Inpatient Order (span 2 midnights) Reason for Inpatient Admission: see below Assessment and Plan a-fib with RVR new onset Continue on cardizem gtt Cardiology consulted, appreciate recs telemetry Eliquis for stroke ppx COVID19 NOT ADMITTED FOR COVID Not hypoxic- no indication for decadron Regeneron ordered, patient consented to use by ER staff DVT ppx: Eliquis as above Clinical Quality Measures AMI/AHF: ASA po Prior to arrival: CONSTANTIN Taveras MD Jul 29, 2021 15:40
[2021-07-29] MEDS: LACTATED RINGERS 1,000 ML IV SCH (16:50)
[2021-07-29] MEDS: APIXABAN 5 MG (ELIQUIS) TABLET PO SCH (20:49)
[2021-07-29] MEDS: ACETAMINOPHEN 325 MG TABLET PO PRN (22:24)
[2021-07-30] MEDS: LACTATED RINGERS 1,000 ML IV SCH ×3 (00:37→20:38)
[2021-07-30 05:27] LABS: BASOPHILS % (AUTO) 0 % (0-10); EOSINOPHILS % (AUTO) 0 % (0-10); HEMATOCRIT 41 % (35-52); HEMOGLOBIN 12.9 g/dL (11.5-16.0); LYMPHOCYTES % (AUTO) 19 % (12-44); MEAN CORPUSCULAR HEMOGLOBIN 26 pg (25-34); MEAN CORPUSCULAR HGB CONC 31 g/dL (32-36); MEAN CORPUSCULAR VOLUME 84 fL (80-99); MEAN PLATELET VOLUME 10.1 fL (9.0-12.2); MONOCYTES # (AUTO) 0.1 10^3/uL (0.0-1.0); MONOCYTES % (AUTO) 2 % (0-12); NEUTROPHILS # (AUTO) 4.1 10^3/uL (1.8-7.8); NEUTROPHILS % (AUTO) 78 % (42-75); PLATELET COUNT 138 10^3/uL (130-400); WHITE BLOOD COUNT 5.3 10^3/uL (4.3-11.0)
[2021-07-30 05:53] LABS: CALCIUM 8.4 MG/DL (8.5-10.1)
[2021-07-30 05:57] LABS: CREATININE SERUM 0.7 MG/DL (0.60-1.30)
[2021-07-30] MEDS: ACETAMINOPHEN 325 MG TABLET PO PRN ×2 (07:56→17:41)
[2021-07-30] MEDS: APIXABAN 5 MG (ELIQUIS) TABLET PO SCH ×2 (08:00→20:58)
--- NOTE | 2021-07-30 09:07 | Progress Note - Hospitalist ---
Subjective HPI/CC On Admission Date Seen by Provider: Jul 30, 2021 Time Seen by Provider: 08:49 Patient is a 56-year-old female who presented to the emergency department due to fever with known Covid positive status. She states that her symptoms started on July 21 and she tested positive on July 22. She has been managing at home but today checked her temperature and said it was 105 so called her primary care's office who recommended evaluation in the emergency department. On arrival to the ER she was found to have a heart rate of 192 and be in new onset A. fib with RVR. She has not been hypoxic. She has had loss of taste and smell though. She was admitted to the ICU on a Cardizem drip. Subjective/Events-last exam Pt reports feeling better today but had a fever this AM. Objective Exam Vital Signs Vital Signs Date Time Temp Pulse Resp B/P (MAP) Pulse Ox O2 Delivery O2 Flow Rate FiO2 07/30/21 07:51 38.6 07/30/21 06:00 101 105/69 86 Room Air 07/30/21 05:00 32 Capillary Refill : Less Than 3 Seconds General Appearance: No Apparent Distress, WD/WN, Obese Respiratory: Lungs Clear, No Respiratory Distress Cardiovascular: Regular Rate, Rhythm, No Murmur Neurologic/Psychiatric: Alert, Oriented x3 Results/Procedures Lab Laboratory Tests 07/29/21 11:00 07/30/21 05:15 Patient resulted labs reviewed. Imaging: Reviewed Imaging Report Assessment/Plan Assessment and Plan Assess & Plan/Chief Complaint a-fib with RVR converted to sinus rhythm yesterday Off cardiem gtt, switched to oral cardizem Cardiology consulted, appreciate recs telemetry Eliquis for stroke ppx transfer to [facility] for tele COVID19 NOT ADMITTED FOR COVID Mildly hypoxic overnight (discussed with RN and night RN said dropped to 88- 89 once while asleep despite vitals documentation; patient reports snoring at baseline so likely undiagnosed NANCY) received Regeneron 07/30 DVT ppx: Eliquis as above Critical Care Critically Ill Patient Clinical Quality Measures AMI/AHF: ASA po Prior to arrival: CONSTANTIN Taveras MD Jul 30, 2021 09:07
--- NOTE | 2021-07-30 12:54 | Tele-ICU Progress Note ---
Progress Note Video assessment done , Hemodynamically stable Available charting reviewed, discussed with RN NO TELE-ICU CONSULT REQUESTED CONTINUE TO MONITOR PER USUAL TELE-ICU PROTOCOL a-fib with RVR -sinus rhyth -Cardiology consulted, - AC with Lindsey [id number] -received Regeneron 07/30 - mild hypoxia at night - ? NANCY , discussed with RN - if hypoxic awake to report to MD Chris pacheco tneed steroids Plans as delineated by bedside physicians / consultants Focused Exam Height, Weight, BMI Height: 5'4.00" Weight: 232lbs. 7.0oz. 105.773570ro; 38.48 BMI Method:Stated SHAY MATHEW MD Jul 30, 2021 12:54
[2021-07-30] MEDS: dilTIAZem DRIP PRE-MIX 125 ML IV SCH (13:23)
--- NOTE | 2021-07-30 13:59 | Consultation-Cardiology ---
HPI-Cardiology Cardiology Consultation: Date of Consultation 07/30/21 Time Seen by a Provider: 08:20 Date of Admission Attending Physician Kailey Wise MD Admitting Physician Nahomy Woo MD Consulting Physician MELBA KO MD, MA, FACP, FACC, [facility], CCDS Physician requesting consult: Dr Wise HPI: Chief Complaint: CC: PAF HPI 56 yo woman who came to the ER yesterday because had a temp of 105 deg F at home. Had been diagnosed with COVID-19 a week earlier. Was found to have A Fib with RVR at time of presentation to the ER on 07/29/21. Denies cp or palp or syncope. Notes gen malaise and weakness. No n/v/d. Some exertional shortness of breath Review of Systems-Cardiology Review of Systems Constitutional: As described under HPI Eyes: No vision change Ears/Nose/Throat: No ear discharge, No nasal drainage, No recent hearing loss Respiratory: As described under HPI Cardiovascular: As described under HPI Gastrointestinal: No diarrhea, No nausea, No vomiting Genitourinary: No dysuria, No hematuria, No urine frequency changes Musculoskeletal: No back pain, No joint pain Skin: No rash, No ulcerations Psychiatric/Neurological: No seizure, No focal weakness, No syncope FQH-Idylof-Pfffsn Hx Patient Social History Employed/Student: employed Smoking Status: Former Smoker 2nd Hand Smoke Exposure: Yes (SMOKES OCCASIONALY) Have you traveled recently?: No Alcohol Use?: No Pt feels they are or have been: No Immunizations Up To Date Date of Pneumonia Vaccine: Aug 01, 2017 Past Medical History PMH As described under Assessment. Family Medical History Family Medical History: She does not report fam h/o early CAD Allergies and Home Medications Allergies Uncoded Allergies: steri strips (Allergy, Intermediate, rash, 04/01/17) Patient Home Medication List Home Medication List Reviewed: Yes Estradiol (Estradiol Tablet) 1 Mg Tablet, PO DAILY, (Reported) Entered as Reported by: REID PEDROZA on 03/25/17 1344 Hydrocodone/Acetaminophen (Hydrocodone-Acetamin 5-325 mg) 1 Each Tablet, 1 TAB PO Q6H PRN for PAIN-MODERATE (5-7) Prescribed by: SUSI ARMENTA on 07/12/21 0933 Lisinopril (Lisinopril) 20 Mg Tablet, 20 MG PO DAILY, (Reported) Entered as Reported by: REID PEDROZA on 08/13/19 1400 Naproxen Sodium (Anaprox Ds) 550 Mg Tablet, 550 MG PO BID PRN for PAIN-MILD, (Re ported) Entered as Reported by: REID PEDROZA on 08/13/19 1400 Ondansetron (Ondansetron Odt) 4 Mg Tab.rapdis, 4 MG PO Q8H PRN for nausea Prescribed by: SUSI ARMENTA on 07/12/21 09 Tamsulosin HCl (Flomax) 0.4 Mg Cap, 0.4 MG PO DAILY Prescribed by: SUSI ARMENTA on 07/12/21931 Physical Exam-Cardiology Physical Exam Vital Signs/I&O 07/30/21 07/30/21 07/30/21 07/30/21 02:00 03:00 04:00 04:00 Pulse 93 99 102 Resp 29 29 34 B/P (MAP) 111/72 110/72 111/71 Pulse Ox 92 88 88 93 O2 Delivery Room Air Room Air Room Air Room Air 07/30/21 07/30/21 07/30/21 07/30/21 05:00 06:00 07:00 07:00 Pulse 101 101 108 90 Resp 32 25 B/P (MAP) 115/72 105/69 105/69 Pulse Ox 87 86 85 O2 Delivery Room Air Room Air Room Air 07/30/21 07/30/21 07/30/21 07/30/21 07:51 08:00 08:00 09:00 Temp 38.6 Pulse 102 Resp 26 15 B/P (MAP) 112/74 95/58 Pulse Ox 91 87 88 O2 Delivery Room Air Room Air Room Air 07/30/21 07/30/21 07/30/21 07/30/21 09:30 10:00 11:00 12:00 Pulse 90 90 98 Resp 24 29 14 B/P (MAP) 93/62 106/68 97/69 Pulse Ox 92 92 89 O2 Delivery Nasal Cannula Nasal Cannula Nasal Cannula Nasal Cannula O2 Flow Rate 2.00 2.00 2.00 2.00 07/30/21 07/30/21 07/30/21 07/30/21 12:00 12:14 13:00 13:17 Temp 36.6 Pulse 89 86 Resp 27 B/P (MAP) 120/82 Pulse Ox 93 89 O2 Delivery Nasal Cannula Nasal Cannula O2 Flow Rate 2.00 2.00 07/30/21 00:00 Intake Total 1660 ml Output Total 425 ml Balance 1235 ml Capillary Refill : Less Than 3 Seconds Constitutional: AAO x 3, well-developed, well-nourished HEENT: EOMI, hearing is well preserved Neck: carotid pulses are 2 + bilaterally, with good upstrokes Respiratory: No accessory muscle use; other (good, bilateral air entry) Cardiovascular: regular rate-rhythm, S1 and S2, systolic murmur (faint GERARDO at card base) Gastrointestinal: No tender; soft; No guarding, No rebound; audible bowel sounds Extremities: No clubbing, No cyanosis, No significant edema Neurologic/Psychiatric: oriented x 3, other (moves all limbs equally) Skin: No rash on exposed areas, No ulcerations on exposed areas Data Review Labs Laboratory Tests 07/30/21 05:15: White Blood Count 5.3, Red Blood Count 4.91, Hemoglobin 12.9, Hematocrit 41, Mean Corpuscular Volume 84, Mean Corpuscular Hemoglobin 26, Mean Corpuscular Hemoglobin Concent 31L, Red Cell Distribution Width 14.9H, Platelet Count 138, Mean Platelet Volume 10.1, Immature Granulocyte % (Auto) 1, Neutrophils (%) (Auto) 78H, Lymphocytes (%) (Auto) 19, Monocytes (%) (Auto) 2, Eosinophils (%) (Auto) 0, Basophils (%) (Auto) 0, Neutrophils # (Auto) 4.1, Lymphocytes # (Auto) 1.0, Monocytes # (Auto) 0.1, Eosinophils # (Auto) 0.0, Basophils # (Auto) 0.0, Immature Granulocyte # (Auto) 0.0, Sodium Level 139, Potassium Level 4.0, Chloride Level 104, Carbon Dioxide Level 23, Anion Gap 12, Blood Urea Nitrogen 16, Creatinine 0.70, Estimat Glomerular Filtration Rate 86, BUN/Creatinine Ratio 23, Glucose Level 93, Calcium Level 8.4L A/P-Cardiology Assessment/Admission Diagnosis COVID-19 PAF with RVR - first diagnosed on 07-29-21 - currently NSR Discussion and Recomendations * Treat with long-acting oral dilt * Continue oral anticoag, given PAF and COVID-19 * Monitor labs * I discussed her case with Dr Wise today Clinical Quality Measures AMI/AHF: ASA po Prior to arrival: MELBA Albarado MD [facility] Jul 30, 2021 13:59
[2021-07-30] MEDS ORDERED: AZIT500T9 PO (16:02)
[2021-07-30] MEDS ORDERED: PRD20T PO (16:02)
[2021-07-30] MEDS ORDERED: IBUP-2185 PO (16:03)
[2021-07-30] MEDS ORDERED: ASCO-262 PO (16:03)
[2021-07-30] MEDS ORDERED: ZINC50TA58 PO (16:03)
[2021-07-31 04:46] LABS: MEAN CORPUSCULAR VOLUME 84 fL (80-99)
[2021-07-31 04:47] LABS: BASOPHILS % (AUTO) 0 % (0-10); EOSINOPHILS % (AUTO) 0 % (0-10); HEMATOCRIT 40 % (35-52); HEMOGLOBIN 12.8 g/dL (11.5-16.0); LYMPHOCYTES # (AUTO) 1.2 10^3/uL (1.0-4.0); LYMPHOCYTES % (AUTO) 36 % (12-44); MEAN CORPUSCULAR HEMOGLOBIN 27 pg (25-34); MEAN CORPUSCULAR HGB CONC 32 g/dL (32-36); MEAN PLATELET VOLUME 10.4 fL (9.0-12.2); MONOCYTES # (AUTO) 0.2 10^3/uL (0.0-1.0); MONOCYTES % (AUTO) 5 % (0-12); NEUTROPHILS # (AUTO) 1.9 10^3/uL (1.8-7.8); NEUTROPHILS % (AUTO) 58 % (42-75); PLATELET COUNT 131 10^3/uL (130-400); WHITE BLOOD COUNT 3.3 10^3/uL (4.3-11.0)
[2021-07-31 05:00] LABS: POTASSIUM 3.7 MMOL/L (3.6-5.0)
[2021-07-31 05:02] LABS: CALCIUM 8.5 MG/DL (8.5-10.1)
[2021-07-31 05:06] LABS: CREATININE SERUM 0.67 MG/DL (0.60-1.30)
[2021-07-31 05:08] LABS: MAGNESIUM 1.9 MG/DL (1.6-2.4)
[2021-07-31 05:22] LABS: BAND NEUTROPHILS 1 %; LYMPHOCYTES % (MANUAL) 30 %; MONOCYTES % (MANUAL) 9 %; NEUTROPHILS % (MANUAL) 60 %
[2021-07-31 05:23] LABS: MICROCYTOSIS SLIGHT
[2021-07-31] MEDS ORDERED: MAGNESIUM 1 GM/100 ML IVPB 100 ML IV SCH (06:00)
[2021-07-31] MEDS ORDERED: KCL 20 MEQ TAB (K-DUR) PO SCH (06:00)
[2021-07-31] MEDS ORDERED: POTASSIUM CL 10MEQ/50ML IVPB 50 ML IV SCH (06:00)
[2021-07-31] MEDS: APIXABAN 5 MG (ELIQUIS) TABLET PO SCH (08:18)
[2021-07-31] MEDS ORDERED: guaiFENesin/CODEINE (ROBITUSSIN AC) 10ML UDC PO PRN (08:45)
--- NOTE | 2021-07-31 11:56 | Discharge Inst-Simple/Standard ---
Discharge Inst-Standard Patient Instructions/Follow Up Plan of Care/Instructions/FU: Please continue to take your medications as written. Please follow up with your primary care doctor to follow up this hospital stay. Activity as Tolerated: Yes Discharge Diet: No Restrictions Return to The Hospital For: Chest pain, shortness of breath, palpitations, fever, low oxygen, if you feel you are getting worse. CONSTANTIN AL MD Jul 31, 2021 11:56
[2021-07-31] MEDS ORDERED: APIX5TAB PO (11:57)
[2021-07-31] MEDS ORDERED: DILT240C91 PO (11:57)
[2021-07-31] MEDS ORDERED: GFCD10B PO (11:57)
--- NOTE | 2021-07-31 12:02 | Discharge Summary ---
Diagnosis/Chief Complaint Date of Admission Jul 29, 2021 at 12:16 Date of Discharge Discharge Date: Jul 31, 2021 Admission Diagnosis a-fib with RVR Primary Care Nahomy Woo MD Discharge Summary Discharge Physical Exam Allergies: Uncoded Allergies: steri strips (Allergy, Intermediate, rash, 04/01/17) Vitals & I&Os Vital Signs Date Time Temp Pulse Resp B/P (MAP) Pulse Ox O2 Delivery O2 Flow Rate FiO2 07/31/21 17:40 36.8 82 29 101/73 94 Room Air 1.00 General Appearance: No Apparent Distress, WD/WN Respiratory: Lungs Clear, No Respiratory Distress Cardiovascular: Regular Rate, Rhythm, No Murmur Neurologic/Psychiatric: Alert, Oriented x3 Hospital Course Patient was admitted to the hospital due to new onset atrial fibrillation with rapid ventricular rate. She was incidentally Covid positive in the middle of her isolation and had actually presented to the ER due to fever. Her heart rate was found to be 192 and she was placed on a Cardizem drip and admitted to the ICU. She converted back to sinus rhythm without intervention. Cardiology was consulted and she was started on Eliquis for stroke prophylaxis. As she was not admitted for COVID-19 or hypoxia she was treated with Regeneron while she was here. Upon discharge she was on day 11 or 12 of her symptoms and was noted to have nocturnal hypoxia. This is likely due to sleep apnea and home oxygen testing was done and an oxygen was arranged prior to discharge. I called and spoke with her PCP Kimberli Flores NP to inform her of this hospitalization. Labs (last 24 hrs) Patient resulted labs reviewed. Pending Labs Imaging: Reviewed Imaging Report Discussion & Recommendations Discharge Planning: >30 minutes discharge planning Discharge Home Medications: Active Scripts Active Robitussin Ac (Codeine) Syrup (Guaifenesin/Codeine Phosphate) 10 Ml Syrp 5 Ml PO Q4H PRN Diltiazem 24Hr ER (Diltiazem HCl) 240 Mg Cap.er.24h 240 Mg PO DAILY Eliquis (Apixaban) 5 Mg Tablet 5 Mg PO BID Reported Vitamin C (Ascorbate Calcium) 500 Mg Tablet 500 Mg PO DAILY Ibuprofen 200 Mg Capsule 400-600 Mg PO Q8H PRN Zinc 50 Mg Tablet 50 Mg PO DAILY Azithromycin 500 Mg Tablet 500 Mg PO DAILY FILLED 07-27-2021 #5/5 DAY SUPPLY Prednisone 20 Mg Tab Mg PO DAILY TAKE 3 TABS DAILY X 3 DAYS, 2 TABS DAILY X 3 DAYS, THEN 1 TAB DAILY X 3 DAYS FILLED 07-27-2021 #18 DAY SUPPLY Lisinopril 20 Mg Tablet 20 Mg PO HS Instructions to patient/family Please see electronic discharge instructions given to patient. Clinical Quality Measures AMI/AHF: ASA po Prior to arrival: CONSTANTIN Taveras MD Jul 31, 2021 12:02
[2021-07-31 17:40] VITALS: BP 101/73
== END 2021-07-31 17:10 | disposition home or self-care (01) | DRG 308 ==
LOC: EDUNIT# 10:26 → ER 10:28 → ICU 12:16
PROVIDERS: ADMIT Family Medicine; ATTEND Family Medicine
PROC: XW033G6 Introduction of REGN-COV2 Monoclonal Antibody into Peripheral Vein, Percutaneous Approach, New Technology Group 6 (ICD-10-PCS; principal; 2021-07-29)
DX: I48.0 Paroxysmal atrial fibrillation (principal); U07.1 COVID-19; I10 Essential (primary) hypertension; M54.9 Dorsalgia, unspecified; R09.02 Hypoxemia; G47.33 Obstructive sleep apnea (adult) (pediatric); Z73.0 Burn-out; Z79.891 Long term (current) use of opiate analgesic; Z79.899 Other long term (current) drug therapy; Z87.891 Personal history of nicotine dependence
CPT/HCPCS: 36415; 51702; 71045; 80048; 80053; 81000; 83735; 84100; 84145; 84484; 85007; 85025; 85027; 85379; 86141; 93005; 94664; 94761

== ENCOUNTER 2021-09-10 09:54 | Outpatient (RCR) | payer BC ==
[~2021-09-10 09:54] MED LIST changes: -CATHETER FLUSH 10 ML SYR IV PRN
== END 2021-10-23 ==
LOC: CARD 09:54
PROVIDERS: ATTEND Internal Medicine Cardiovascular Disease
DX: I48.0 Paroxysmal atrial fibrillation (principal)
CPT/HCPCS: 93270

== ENCOUNTER → 2021-09-10 | Outpatient (CLI) | payer BC ==
[~2021-09-10] VITALS: Ht 162 cm; Wt 100.0 kg
[~2021-09-10] MED LIST changes: +APIX5TAB PO; +ASCO-262 PO; +AZIT500T9 PO; +CATHETER FLUSH 10 ML SYR IV PRN; +DILT240C91 PO; +GFCD10B PO; +IBUP-2185 PO; +PRD20T PO; +ZINC50TA58 PO
[2021-09-10 12:51] VITALS: BP 134/71
--- NOTE | 2021-09-10 18:15 | NUCLEAR STRESS TEST ---
TREADMILL NUCLEAR STRESS TEST Date of procedure: 09/10/2021. Primary care provider: Nahomy Woo MD. Admitting physician: Kyle Rodriguez Jr., MD. INDICATION: Paroxysmal atrial fibrillation. BASELINE ELECTROCARDIOGRAM: Sinus rhythm with low voltage in the precordial leads and nonspecific intraventricular conduction delay. STRESS TEST PROCEDURE: The patient was exercised for a total of 2 minutes and 40 seconds of the standard Mayank protocol achieving a maximum MET level of 4.2. The resting heart rate was 72 bpm and the peak heart rate was 151 bpm, which represents 92% of the maximum predicted heart rate. The resting blood pressure was 132/73 mmHg and the peak blood pressure was 165/113 mmHg. This represents a normal heart rate and a normal blood pressure response to exercise. The test was stopped due to fatigue. There was no chest discomfort during the test. There were isolated premature ventricular complexes in recovery. There were no significant stress induced electrocardiogram changes. The patient exhibited poor exercise capacity for age. NUCLEAR PROCEDURE: The patient was administered 10.7 mCi of intravenous technetium 99m Tetrofosmin at rest for the rest images. The patient was subsequently administered 30.7 mCi of intravenous technetium 99 M Tetrofosmin at peak stress for the stress images. Following an appropriate wait after each injection, imaging was obtained. The images were subsequently processed and reformatted in the usual views. Gated imaging was obtained. The image quality was adequate with a mild degree of gastrointestinal attenuation artifact. CT attenuation correction was used as a adjunct to standard imaging. Both the corrected and uncorrected images were reviewed for interpretation. NUCLEAR RESULTS: There was normal myocardial perfusion in all segments without evidence of infarction or ischemia. There was normal left ventricular chamber size with an end-diastolic volume of 36 mL and an end-systolic volume of 14 mL. There was no evidence of transient ischemic dilatation. The TID ratio was 0.95. There was normal wall motion in all segments with a calculated ejection frac tion of 62%. IMPRESSION: 1. Normal heart rate and blood pressure response to exercise. 2. There was no chest discomfort during the test. 3. There were isolated premature ventricular complexes in recovery. 4. There were no exercise-induced electrocardiogram changes. 5. The patient exhibited poor exercise capacity for age at 2 minutes and 40 seconds of the Mayank protocol. 6. There was normal myocardial perfusion in all segments without evidence of infarction or ischemia. 7. There was normal wall motion in all segments with a calculated ejection fraction of 62%. Certain portions of this document may have been dictated utilizing voice recognition technology. Inherent to this technology, typographical and grammatical errors may exist. As much as I am diligent to identify and correct these mistakes, some errors may remain in the document. KYLE RODRIGUEZ JR, MD Sep 10, 2021 18:15
== END ==
LOC: CARD 09:44
PROVIDERS: ATTEND Internal Medicine Cardiovascular Disease
DX: I51.7 Cardiomegaly (principal); I48.0 Paroxysmal atrial fibrillation
CPT/HCPCS: 78452; 93017; 93306; A9502

== ENCOUNTER → 2022-12-22 | Outpatient (CLI) | payer BC ==
[~2022-12-22] VITALS: Ht 160 cm; Wt 100.0 kg
[~2022-12-22] MED LIST changes: +LIDOCAINE 1% INJ 30 ML (XYLOCAINE) VIAL INJ ONE; +LIDOCAINE 1% INJ 30 ML (XYLOCAINE) VIAL ONE
--- NOTE | 2022-12-22 12:24 | Diagnostic Imaging Report ---
INDICATION: Left thyroid mass. Patient presents for ultrasound guided fine needle aspiration. DETAILS OF THE PROCEDURE: The patient was brought to the procedure room and placed on the table in the supine position. Ultrasound imaging of the left neck was performed to evaluate for an appropriate entry site. The left neck was then prepped and draped in the usual sterile fashion. A small amount of 1% lidocaine was utilized for local anesthesia. A total of 4 passes was made into the dominant mass in the left lobe of the thyroid utilizing 25-gauge needles and fine-needle aspiration technique. The needles were removed and hemostasis was obtained. The patient tolerated the procedure well and left the Department in stable condition. IMPRESSION: Successful ultrasound guided fine-needle aspiration of the dominant solid mass in the left lobe of the thyroid. Pathology results are currently pending. Dictated by: Dictated on workstation # [id number]
== END ==
LOC: RAD 09:20
PROVIDERS: ATTEND Family Medicine
DX: E07.9 Disorder of thyroid, unspecified (principal)

== ENCOUNTER 2023-03-08 06:57 | Emergency (ER) | payer BC ==
[~2023-03-08] VITALS: Ht 164 cm; Wt 105.0 kg
[~2023-03-08 06:57] MED LIST changes: -LIDOCAINE 1% INJ 30 ML (XYLOCAINE) VIAL INJ ONE; -LIDOCAINE 1% INJ 30 ML (XYLOCAINE) VIAL ONE
--- NOTE | 2023-03-08 07:15 | ED Back Pain ---
General Chief Complaint: Back Problems Stated Complaint: BACK PAIN Nursing Triage Note: PT STATES SHE WOKE UP WITH RT LOWER BACK PAIN ABOUT 0230 THIS A.M. DENIES URINARY ISSUES. NO KNOWN INJURY Source of Information: Patient Exam Limitations: No Limitations History of Present Illness Date Seen by Provider: March 08, 2023 Time Seen by Provider: 07:15 Initial Comments Patient is a 57-year-old female who presents to the emergency room with a chief complaint of right lower back pain. Patient states it started around 2 this morning when she got up to go to the bathroom. Patient states she was able to get up without any problems going to the bathroom, void and when she was getting up she had sudden onset of pain. She has never had pain like this before. She states that it seems to radiate around into her right groin. She denies any burning with urination, urgency. She does not recall any traumas to the area. Movement, every bump in the road, even stopping the car causes increased pain. She states that she tried to lay on some ice packs, laying flat made her feel worse. No numbness tingling or weakness in the leg. Last bowel movement was yesterday but not a "good" one. She has had prior tubal ligation and cholecystectomy. She takes medications for hypertension. Remote history of A- fib when she had COVID in 2019. No longer on Eliquis. Has had prior colonoscopy with a diagnosis of diverticulosis. Timing/Duration: 4-6 Hours Severity: Severe Pain/Injury Location: Back Radiation: Other (right groin) Modifying Factors: Worse With Jarring, Worse With Movement Associated Symptoms: muscle spasms; No numbness in legs/feet, No tingling in legs/feet, No sensory/motor loss; lower back pain (right sided) Allergies and Home Medications Allergies Uncoded Allergies: steri strips (Allergy, Intermediate, rash, 04/01/17) Patient Home Medication List Home Medication List Reviewed: Yes Apixaban (Eliquis) 5 Mg Tablet, 5 MG PO BID Prescribed by: CONSTANTIN AL on 07/31/21 1157 Ascorbate Calcium (Vitamin C) 500 Mg Tablet, 500 MG PO DAILY, (Reported) Entered as Reported by: ANNA JOHNSON on 07/30/21 1603 Azithromycin (Azithromycin) 500 Mg Tablet, 500 MG PO DAILY, (Reported) Entered as Reported by: ANNA JOHNSON on 07/30/21 1602 Diltiazem HCl (Diltiazem 24Hr ER) 240 Mg Cap.er.24h, 240 MG PO DAILY Prescribed by: CONSTANTIN AL on 07/31/21 1157 Guaifenesin/Codeine (Robitussin Ac (Codeine) Syrup) 10 Ml Syrp, 5 ML PO Q4H PRN for cough Prescribed by: CONSTANTIN AL on 07/31/21 1157 Ibuprofen (Ibuprofen) 200 Mg Capsule, 400-600 MG PO Q8H PRN for PAIN-MILD (1-4), (Reported) Entered as Reported by: ANNA JOHNSON on 07/30/21 1603 Lisinopril (Lisinopril) 20 Mg Tablet, 20 MG PO HS, (Reported) Entered as Reported by: REID PEDROZA on 08/13/19 1400 Prednisone (Prednisone) 20 Mg Tab, MG PO DAILY, (Reported) Entered as Reported by: ANAN JOHNSON on 07/30/21 1602 Zinc (Zinc) 50 Mg Tablet, 50 MG PO DAILY, (Reported) Entered as Reported by: ANNA JOHNSON on 07/30/21 1603 Review of Systems Constitutional: see HPI Respiratory: no symptoms reported Cardiovascular: no symptoms reported Gastrointestinal: nausea Genitourinary: no symptoms reported Musculoskeletal: back pain (right posterior hip) Skin: no symptoms reported Psychiatric/Neurological: No Symptoms Reported Past Dpkgwql-Gvigth-Vusaiz Hx Patient Social History Tobacco Use?: Yes Smoking Status: Former Smoker Substance use?: No Alcohol Use?: No Seasonal Allergies Seasonal Allergies: Yes (MILD) Past Medical History Surgery/Hospitalization HX: THYROID ISSUES- GOING TO HAVE IT REMOVED, HYST-BLADDER SLING, ALIVIA Surgeries: Yes (hand surgery status post degloving injury X 12) Bladder Surgery, Gallbladder, Hysterectomy, Tubal Ligation Respiratory: No Cardiac: Yes Hypertension Neurological: No 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) Female Reproductive Disorders: Denies SURGICAL TECH History: Hysterectomy, Menopausal Sexually Transmitted Disease: No HIV/AIDS: No Genitourinary: No Gastrointestinal: Yes Diverticulosis Musculoskeletal: Yes Arthritis, Chronic Back Pain Endocrine: No HEENT: Yes (READING GLASSES, DENTURES) Loss of Vision: Denies Hearing Impairment: Denies Cancer: No Psychosocial: No Integumentary: No Blood Disorders: No Adverse Reaction/Blood Tranf: No (N/A) Family Medical History Cancer, COPD, Other Conditions/Hx Physical Exam Vital Signs Vital Signs - First Documented 03/08/23 07:06 Temp 36.6 Pulse 98 Resp 20 B/P (MAP) 110/90 (97) Pulse Ox 97 O2 Delivery Room Air Capillary Refill : Less Than 3 Seconds Height, Weight, BMI Height: 5'4.00" Weight: 232lbs. 7.0oz. [id number]; 39.00 BMI Method:Stated General Appearance: WD/WN, Mild Distress HEENT: PERRL/EOMI Cardiovascular: Regular Rate, Rhythm, Normal Peripheral Pulses Respiratory: Lungs Clear, Normal Breath Sounds, No Accessory Muscle Use, No Respiratory Distress Gastrointestinal: Soft, Guarding (voluntary), Tenderness (right flank and RLQ) Back: Normal Inspection, No Vertebral Tenderness; No CVA Tenderness (R); Decreased Range of Motion, Other (negative SLR on the right) Extremity: Normal Inspection, Normal Range of Motion, Non Tender, No Calf Tenderness Neurologic/Psychiatric: Alert, Oriented x3, No Motor/Sensory Deficits, Normal Mood/Affect, curatorial specialist II-XII Norm as Tested Skin: Normal Color, Warm/Dry; No Rash; Tattoos/Piercings Progress/Results/Core Measures Results/Orders Lab Results Laboratory Tests Test 03/08/23 07:32 03/08/23 07:40 Range/Units Urine Color YELLOW Urine Clarity CLEAR Urine pH 5.5 5-9 Urine Specific [place] 1.010 L 1.016-1.022 Urine Protein NEGATIVE NEGATIVE Urine Glucose (UA) NEGATIVE NEGATIVE Urine Ketones NEGATIVE NEGATIVE Urine Nitrite NEGATIVE NEGATIVE Urine Bilirubin NEGATIVE NEGATIVE Urine Urobilinogen 1.0 < = 1.0 MG/DL Urine Leukocyte Esterase NEGATIVE NEGATIVE Urine RBC (Auto) NEGATIVE NEGATIVE Urine RBC NONE /HPF Urine WBC RARE /HPF Urine Squamous Epithelial Cells RARE /HPF Urine Crystals NONE /LPF Urine Bacteria NEGATIVE /HPF Urine Casts NONE /LPF Urine Mucus NEGATIVE /LPF Urine Culture Indicated NO White Blood Count 7.3 4.3-11.0 10^3/uL Red Blood Count 4.92 3.80-5.11 10^6/uL Hemoglobin 13.5 11.5-16.0 g/dL Hematocrit 41 35-52 % Mean Corpuscular Volume 84 80-99 fL Mean Corpuscular Hemoglobin 27 25-34 pg Mean Corpuscular Hemoglobin Concent 33 32-36 g/dL Red Cell Distribution Width 14.0 10.0-14.5 % Platelet Count 217 130-400 10^3/uL Mean Platelet Volume 10.8 9.0-12.2 fL Immature Granulocyte % (Auto) 0 % Neutrophils (%) (Auto) 77 H 42-75 % Lymphocytes (%) (Auto) 16 12-44 % Monocytes (%) (Auto) 6 0-12 % Eosinophils (%) (Auto) 0 0-10 % Basophils (%) (Auto) 0 0-10 % Neutrophils # (Auto) 5.7 1.8-7.8 10^3/uL Lymphocytes # (Auto) 1.2 1.0-4.0 10^3/uL Monocytes # (Auto) 0.5 0.0-1.0 10^3/uL Eosinophils # (Auto) 0.0 0.0-0.3 10^3/uL Basophils # (Auto) 0.0 0.0-0.1 10^3/uL Immature Granulocyte # (Auto) 0.0 0.0-0.1 10^3/uL Sodium Level 140 135-145 MMOL/L Potassium Level 4.4 3.6-5.0 MMOL/L Chloride Level 107 98-107 MMOL/L Carbon Dioxide Level 23 21-32 MMOL/L Anion Gap 10 5-14 MMOL/L Blood Urea Nitrogen 16 7-18 MG/DL Creatinine 0.80 0.60-1.30 MG/DL Estimat Glomerular Filtration Rate 85 BUN/Creatinine Ratio 20 Glucose Level 150 H 70-105 MG/DL Calcium Level 9.5 8.5-10.1 MG/DL My Orders Orders - SUSI ARMENTA MD Ed Iv/Invasive Line Start (03/08/23 07:23) Cbc With Automated Diff (03/08/23 07:23) Basic Metabolic Panel (03/08/23 07:23) Urinalysis (03/08/23 07:23) Ns Iv 1000 Ml (Sodium Chloride 0.9%) (03/08/23 07:23) Ondansetron Injection (Zofran Injectio (03/08/23 07:30) Fentanyl Inj (Sublimaze Injection) (03/08/23 07:30) Ketorolac Injection (Toradol Injection) (03/08/23 08:30) Orphenadrine Inj (Ed Only) (Norflex Inje (03/08/23 08:30) Prednisone Tablet (Deltasone Tablet) (03/09/23 07:00) Prednisone Tablet (Deltasone Tablet) (03/08/23 08:34) Ketorolac Injection (Toradol Injection) (03/08/23 08:34) Orphenadrine Inj (Ed Only) (Norflex Inje (03/08/23 08:35) Medications Given in ED Current Medications Medications Dose Ordered Sig/Crystal Route Start Time Stop Time Status Last Admin Dose Admin Fentanyl Citrate 50 mcg ONCE ONCE IVP 03/08/23 07:30 03/08/23 07:31 DC 03/08/23 07:45 50 MCG Ketorolac Tromethamine 15 mg ONCE ONCE IVP 03/08/23 08:30 03/08/23 08:31 DC 03/08/23 08:37 15 MG Ondansetron HCl 4 mg ONCE ONCE IVP 03/08/23 07:30 03/08/23 07:31 DC 03/08/23 07:45 4 MG Orphenadrine Citrate 60 mg ONCE ONCE IV 03/08/23 08:30 03/08/23 08:31 DC 03/08/23 08:37 60 MG Vital Signs/I&O 03/08/23 03/08/23 03/08/23 07:06 07:45 08:37 Temp 36.6 36.6 36.6 Pulse 98 Resp 20 B/P (MAP) 110/90 (97) Pulse Ox 97 O2 Delivery Room Air Blood Pressure Mean: 97 Progress Progress Note : Time: 08:24 Progress Note Patient seen and examined by me. Eval today includes physical exam, CBC, BMP, UA. Pertinent physical exam findings WDWN female in mod distress. Heart is regular, Lungs are clear. Abdomen is soft and tender in the RLQ with voluntary guarding. Tenderness in the right flank. BS are present. No overlying rash. no CVA tenderness. No bony midline tenderness. tenderness to the soft tissues over the right flank/posterior superior iliac crest. DDX based on h/p includes renal stone, appendicitis, early shingles, pyelonephritis, musculoskeletal pain. Patient treated in the ED with NS, fentalnyl 50mcg, zofran 4mg. SHe had some relief of pain but still quite painful. Reexamined at this time. More tender over the right hip bursa at this time. Will add prednisone, norflex and some toradol. Low clinical suspicion for pyelo and renal colic due to normal UA (no blood no WBC). no overlying rash, quality of pain is not consistent with shingles. SHe has now point tenderness to the right hip bursa - will start anti-inflammatories and send home with pain meds. Departure Impression Primary Impression: Bursitis of hip, right Qualified Codes: M70.61 - Trochanteric bursitis, right hip Disposition: HOME, SELF-CARE Condition: Improved Departure-Patient Inst. Decision time for Depature: 10:03 Referrals: OLIVIER BADILLO MD (PCP/Family) Primary Care Physician Patient Instructions: Hip Bursitis Exercises Add. Discharge Instructions: Take the prednisone, 1 tablet once a day for the next 5 days. This will help with pain and inflammation. You should take a generic vxrm-lye-hpcjfko acid insect control aide such as Pepcid daily while you are on prednisone. Muscle relaxer, cyclobenzaprine 1 tablet every 8 hours as needed for muscle spasm. Tramadol 1 pill every 6 hours as needed for severe pain. Otherwise extra strength Tylenol 2 tablets every 6 hours as needed for pain. You can get lidocaine patches at your pharmacy, please follow packaging instructions. You can place this over the sore area of your low back/hip. Return to the emergency room for fever, worsening pain, rash or any other emergent, concerning symptoms. Please call and follow-up with your primary care physician regarding this pain. Scripts Cyclobenzaprine HCl (Cyclobenzaprine HCl) 10 Mg Tablet 10 MG PO Q8H PRN for SPASMS, #8 TAB Prov: SUSI ARMENTA MD 03/08/23 Tramadol HCl (Tramadol HCl) 50 Mg Tablet 50 MG PO Q6H PRN for PAIN, #8 TAB 0 Refills Prov: SUSI ARMENTA MD 03/08/23 Prednisone (Prednisone) 50 Mg Tab 50 MG PO DAILY for 5 Days, #5 TAB Prov: SUSI ARMENTA MD 03/08/23 Copy Copies To 1: OLIVIER BADILLO MD, KATHRYN M MD March 08, 2023 07:15
[2023-03-08] MEDS ORDERED: NS IV 1000 ML 1,000 ML IV STA (07:23)
[2023-03-08] MEDS ORDERED: ONDANSETRON 4 MG/2 ML (SDV) Z0FRAN IVP ONE (07:30)
[2023-03-08] MEDS ORDERED: fentaNYL INJ 100 MCG/2 ML AMP IVP ONE (07:30)
[2023-03-08 07:39] LABS: BILIRUBIN,URINE NEGATIVE (NEGATIVE); CLARITY,URINE CLEAR; COLOR,URINE YELLOW; GLUCOSE, URINE (UA) NEGATIVE (NEGATIVE); KETONES,URINE NEGATIVE (NEGATIVE); LEUKOCYTE ESTERASE ,URINE NEGATIVE (NEGATIVE); NITRITE,URINE NEGATIVE (NEGATIVE); PH,URINE 5.5 (5-9); PROTEIN,URINE NEGATIVE (NEGATIVE)
[2023-03-08 07:50] LABS: WBC,URINE RARE /HPF
[2023-03-08 07:51] LABS: BACTERIA,URINE NEGATIVE /HPF; SQUAMOUS EPITHELIAL CELL,UR RARE /HPF
[2023-03-08 07:51] LABS: BASOPHILS % (AUTO) 0 % (0-10); EOSINOPHILS % (AUTO) 0 % (0-10); HEMATOCRIT 41 % (35-52); HEMOGLOBIN 13.5 g/dL (11.5-16.0); LYMPHOCYTES # (AUTO) 1.2 10^3/uL (1.0-4.0); LYMPHOCYTES % (AUTO) 16 % (12-44); MEAN CORPUSCULAR HEMOGLOBIN 27 pg (25-34); MEAN CORPUSCULAR HGB CONC 33 g/dL (32-36); MEAN CORPUSCULAR VOLUME 84 fL (80-99); MEAN PLATELET VOLUME 10.8 fL (9.0-12.2); MONOCYTES # (AUTO) 0.5 10^3/uL (0.0-1.0); MONOCYTES % (AUTO) 6 % (0-12); NEUTROPHILS # (AUTO) 5.7 10^3/uL (1.8-7.8); NEUTROPHILS % (AUTO) 77 % (42-75); PLATELET COUNT 217 10^3/uL (130-400); WHITE BLOOD COUNT 7.3 10^3/uL (4.3-11.0)
[2023-03-08 07:57] LABS: POTASSIUM 4.4 MMOL/L (3.6-5.0)
[2023-03-08 07:58] LABS: CALCIUM 9.5 MG/DL (8.5-10.1)
[2023-03-08 08:03] LABS: CREATININE SERUM 0.8 MG/DL (0.60-1.30)
[2023-03-08] MEDS ORDERED: KETOROLAC 15 MG/ML VIAL IVP ONE (08:30)
[2023-03-08] MEDS ORDERED: ORPHENADRINE 60 MG/2 ML (NORFLEX) AMP (ED ONLY) IV ONE (08:30)
[2023-03-08] MEDS ORDERED: predniSONE 20 MG TAB ONE (08:34)
[2023-03-08] MEDS ORDERED: KETOROLAC 15 MG/ML VIAL ONE (08:34)
[2023-03-08] MEDS ORDERED: ORPHENADRINE 60 MG/2 ML (NORFLEX) AMP (ED ONLY) ONE (08:35)
[2023-03-08] MEDS ORDERED: CYCL10TA25 PO (10:06)
[2023-03-08] MEDS ORDERED: TRM50T PO (10:06)
[2023-03-08] MEDS ORDERED: PRD50T PO (10:06)
[2023-03-08 10:28] VITALS: BP 112/61
[2023-03-09] MEDS ORDERED: predniSONE 20 MG TAB PO SCH (07:00)
== END 2023-03-08 10:27 | disposition home or self-care (01) ==
LOC: EDUNIT# 06:57 → ER 07:01
DX: M70.71 Other bursitis of hip, right hip (principal); Z86.16 Personal history of COVID-19; Z87.891 Personal history of nicotine dependence; Z28.310 Unvaccinated for COVID-19
CPT/HCPCS: 36415; 80048; 81000; 85025